=== PATIENT | male | born 1965 | race Two or more races ===

== ENCOUNTER 2020-11-28 11:52 | Outpatient (REF) | payer OTHER, SELFPAY | END 2020-11-28 11:53 | disposition home or self-care (01) | LOC: HO.LAB 11:52 | PROVIDERS: Visit Provider Internal Medicine | DX: Z20.822 Contact with and (suspected) exposure to COVID-19 (principal) | CPT/HCPCS: 36415; C9803; U0003; U0005 ==

== ENCOUNTER 2021-09-13 14:23 | Emergency (ER) | payer OTHER, SELFPAY ==
--- NOTE | ~2021-09-13 | XR_ITS ---
EXAMINATION: XR TIBIA AND FIBULA, RIGHT CLINICAL INFORMATION: Right lateral lower leg laceration from metal COMPARISON: None TECHNIQUE: AP and lateral views of the right tibia and fibula were obtained. FINDINGS: Bone alignment is normal. No fracture or dislocation is seen. The joint spaces are normal. There is a small plantar calcaneal spur. There is evidence of trauma to the soft tissues of the lateral lower leg. No soft tissue foreign body is seen. XR/XR tibia fibula RT 2V IMPRESSION: No fracture or foreign body seen.
[2021-09-13 14:36] VITALS: BP 119/80; PULSE 65; RESP 18; TEMP 37.2; O2SAT 93; BMI 28.5
[2021-09-13] MEDS: Acetaminophen 325 MG TABLET 650 MG PO (16:18)
--- NOTE | 2021-09-13 17:13 | ED_ITS ---
HPI - Wound/Laceration General Chief Complaint: Wound/Laceration Stated Complaint: leg lac Time Seen by Provider: 09/13/21 17:06 Source: patient Mode of arrival: ambulatory History of Present Illness HPI narrative: 56-year-old male with a past medical history of anxiety, ETOH abuse, hypertension, insomnia presenting to the ED complaining of laceration to right lower extremity s/p large metal sheet hitting leg while jared/at work [employer]. Tetanus unknown. Denies injury to other area, numbness, tingling, weakness Onset (ago): hour(s) Related Data Previous Rx's Medication Instructions Recorded hydrocodone 5 mg-acetaminophen 325 1 tab PO Q8H PRN 3 Days #5 tab 09/13/21 mg tablet naproxen 500 mg tablet 500 mg PO BID PRN 10 Days #20 tab 09/13/21 Allergies Allergy/AdvReac Type Severity Reaction Status Date / Time No Known Allergies Allergy Verified 09/13/21 14:36 Review of Systems Review of Systems: Constitutional: No Fever, No Chills ENT/Mouth: No Ear Pain, No Nasal Congestion, No sore throat, No Rhinorrhea Cardiovascular: No Chest Pain, No SOB Respiratory: No Cough Gastrointestinal: No Nausea, No Vomiting, No Diarrhea, No Constipation, No Abdominal pain Genitourinary: No Dysuria, No Hematuria, No Urgency, No Flank Pain Musculoskeletal: No joint pain, No Myalgias, No Joint Swelling Skin: + Skin Lesions, No rash Neuro: No Weakness, No Numbness, No Paresthesias Yes all other systems are reviewed and are negative [facility] Past Medical History Attestation statement: The following information was validated with the patient. Medical History Anxiety H/O ETOH abuse Hypertension Insomnia Surgical History H/O hand surgery Social History Social History Advance Directives: No Advance Directives Information Provided: No Physical Exam Vital Signs: Vital Signs: Last Vital Signs Temp 99.0 F 09/13/21 14:36 Pulse 65 09/13/21 14:36 Resp 18 09/13/21 14:36 BP 119/80 09/13/21 14:36 Pulse Ox 93 09/13/21 14:36 BMI result Body Mass Index 28.5 Const: General: cooperative, healthy appearing and no acute distress Orientation/consciousness: patient oriented x3 Limitations: no limitations HENMT: Head: Yes normal to inspection Ears: hearing grossly normal bilaterally General nose exam: Normal external nose present Face and sinus: Yes normal facial exam Eyes: General: appearance normal, both eyes and all related structures EOM: EOMs intact bilaterally Neck: Neck: Yes normal visual inspection and Yes no meningeal signs Resp: Effort & Inspection: normal respiratory effort and no respiratory distress Cardio: Rate: regular rate Heart sounds: S1 normal heart sound present and S2 normal heart sound present Skin: Other: +9 cm laceration noted to right benitez. Underlying structures intact. Bleeding controlled. NV intact distally Rashes: no rashes Neuro: General: patient oriented x3, tone normal and no meningeal signs Gait exam (Neuro): Normal gait present Extrem: Other: Right knee/ankle/toes nontender with full range of motion intact General: Yes normal to inspection Course Course Course Narrative: -please refer to procedure note. 15 sutures placed and Steri- Strips applied over for reinforcement MDM - Wound/Laceration MDM Narrative Medical decision making narrative: 56-year-old male with a past medical history of anxiety, ETOH abuse, hypertension, insomnia presenting to the ED complaining of laceration to right lower extremity s/p large metal sheet hitting leg while jared/at work [employer]. On exam vital signs stable, NAD/nontoxic, physical exam as above. Will update tetanus and repair wound Differential Diagnosis Differential diagnosis: Likely laceration Medical Records Attestation: I reviewed the patient's medical records. Lab Data Attestation: I reviewed the patient's lab results. Procedures Laceration Laceration 1: Site: lower extremity Side (If applicable): right Size (cm): 9 Description: flap and irregular Depth: simple, single layer Local Anesthetic: lidocaine 1% Amount of anesthesia used (mL): 8 Pre-repair: wound explored, irrigated extensively and deep structures intact Skin layer closed with: nylon Size (cm): 4-0 Number of sutures: 15 Technique: simple, interrupted Discharge Plan Discharge Clinical Impression: Laceration Patient Disposition: Home, Self-Care Instructions: Laceration (ED) Additional Instructions: Your x-ray did not show any foreign body Your wound was repaired with sutures today in the emergency department, place return to any ED or urgent care in 7-10 days to have the stitches taken out Your tetanus was also updated If area begins to look infected, is red, there is drainage, red streaking or you develop fever please return to the ED Avoid getting area wet for the next 24-48 hours, after this you may get wet however do not soak, only pat dry, do not scrub Take Tylenol & Motrin at home for pain, elevate area [place] is an opiate pain medication, take only when pain is severe for the next 3 days. Be aware [place] has Tylenol mixed in, do not exceed 4 g of Tylenol in 1 day Prescriptions: New hydrocodone-acetaminophen 5-325 mg tablet 1 tab PO Q8H PRN (Reason: pain, severe) 3 Days Qty: 5 RF: 0 naproxen 500 mg tablet 500 mg PO BID PRN (Reason: pain) 10 Days Qty: 20 RF: 0 Referrals: Jhony Lagos MD [Emergency Provider] - 10 days (Return to any emergency department or urgent care in 7-10 days for suture removal) Stand Alone Forms: Work/School Release
[2021-09-13] MEDS: Diphth,Pertus(ACell),Tet Adult 0.5 ML SYRINGE IM (18:36)
[2021-09-13] MEDS: Lidocaine HCl 2%/Epi 1:100,000 20 ML VIAL INFILTRATI (18:36)
== END 2021-09-13 18:44 | disposition home or self-care (01) ==
PROVIDERS: Emergency Provider Internal Medicine
DX: S81.811A Laceration without foreign body, right lower leg, initial encounter (principal); I10 Essential (primary) hypertension; W26.8XXA Contact with other sharp object(s), not elsewhere classified, initial encounter; Y93.89 Activity, other specified; Y92.9 Unspecified place or not applicable; Y99.0 Civilian activity done for income or pay
CPT/HCPCS: 12004; 73590; 90471; 90715; 99283; 99284

== ENCOUNTER 2021-09-23 09:42 | Emergency (ER) | payer OTHER, SELFPAY ==
[2021-09-23 09:49] VITALS: BP 136/88; PULSE 49; RESP 19; TEMP 36.6; O2SAT 99; BMI 27.8
--- NOTE | 2021-09-23 11:01 | ED.WOUNDLAC ---
HPI - Wound/Laceration General Chief Complaint: Wound/Laceration Stated Complaint: remove stitches Time Seen by Provider: 09/23/21 10:04 Source: patient Mode of arrival: ambulatory History of Present Illness HPI narrative: 56-year-old male with a past medical history of anxiety, ETOH abuse, hypertension, insomnia presenting to the ED for suture removal from right lower extremity s/p injury on 09/13. Patient reports clear drainage from wound. Denies fever, chills, pain Onset (ago): day(s) () Related Data Previous Rx's Medication Instructions Recorded hydrocodone 5 mg-acetaminophen 325 1 tab PO Q8H PRN 3 Days #5 tab 09/13/21 mg tablet naproxen 500 mg tablet 500 mg PO BID PRN 10 Days #20 tab 09/13/21 cephalexin 500 mg capsule 500 mg PO QID 7 Days #28 cap 09/23/21 Allergies Allergy/AdvReac Type Severity Reaction Status Date / Time No Known Allergies Allergy Verified 09/13/21 14:36 Review of Systems Review of Systems: Constitutional: No Fever, No Chills ENT/Mouth: No Ear Pain, No Hoarseness, No sore throat Cardiovascular: No Chest Pain, No SOB Respiratory: No Cough Gastrointestinal: No Nausea, No Vomiting, No Diarrhea, No Constipation, No Abdominal pain Genitourinary: No Dysuria, No Urgency, No Flank Pain Musculoskeletal: No joint pain, No Myalgias, + Swelling Skin: + Skin Lesions, No rash Neuro: No Weakness, No Numbness, No Paresthesias Yes all other systems are reviewed and are negative [facility] Past Medical History Attestation statement: The following information was validated with the patient. Medical History Anxiety H/O ETOH abuse Hypertension Insomnia Surgical History H/O hand surgery Social History Social History Advance Directives: No Advance Directives Information Provided: Yes Physical Exam Vital Signs: Vital Signs: Last Vital Signs Temp 98 F 09/23/21 09:49 Pulse 49 L 09/23/21 09:49 Resp 19 09/23/21 09:49 BP 136/88 09/23/21 09:49 Pulse Ox 99 09/23/21 09:49 BMI result Body Mass Index 27.8 Const: General: cooperative, healthy appearing and no acute distress Orientation/consciousness: patient oriented x3 Limitations: no limitations HENMT: Head: Yes normal to inspection Ears: hearing grossly normal bilaterally General nose exam: Normal external nose present Face and sinus: Yes normal facial exam Eyes: General: appearance normal, both eyes and all related structures EOM: EOMs intact bilaterally Neck: Neck: Yes normal visual inspection and Yes no meningeal signs Resp: Effort & Inspection: normal respiratory effort and no respiratory distress Cardio: Rate: regular rate Peripheral pulses: radial pulses present Skin: Other: Please refer to image above of healing laceration with sutures intact, appropriate scabbing, + clear drainage present with swelling, shiny skin and mild surrounding erythema. No fluctuance/induration. Distal pulses intact. No evidence of necrosis Rashes: no rashes Neuro: General: patient oriented x3 and no meningeal signs Gait exam (Neuro): Normal gait present Extrem: General: Yes normal to inspection MDM - Wound/Laceration MDM Narrative Medical decision making narrative: 56-year-old male with a past medical history of anxiety, ETOH abuse, hypertension, insomnia presenting to the ED for suture removal from right lower extremity s/p injury on 09/13. On exam vital signs stable, please refer to image above, early cellulitis/infection present, no evidence of abscess/necrosis. Low concern for osteomyelitis. Sutures removed and Steri-Strips applied with dressing for additional reinforcement Medical Records Attestation: I reviewed the patient's medical records. Lab Data Attestation: I reviewed the patient's lab results. Procedures Procedure Narrative Procedure Narrative: Suture removal: 15 sutures removed from right lower extremity Steri-Strips applied Discharge Plan Discharge Clinical Impression: Visit for suture removal, Cellulitis Patient Disposition: Home, Self-Care Instructions: Cellulitis (ED), Stitches Removal (ED) Additional Instructions: Your sutures were removed today in the ED, Steri-Strips were applied, do not pick at these they will fall off on not on Keflex as an antibiotic, please take as prescribed If area becomes more swollen, more red, continues to have drainage please return to the ED Please be re-evaluated in 2-3 days by her primary care doctor, he cannot be seen return to the ED for re-evaluation Prescriptions: New cephalexin 500 mg capsule 500 mg PO QID 7 Days Qty: 28 RF: 0 No Action hydrocodone-acetaminophen 5-325 mg tablet 1 tab PO Q8H PRN (Reason: pain, severe) 3 Days Qty: 5 RF: 0 naproxen 500 mg tablet 500 mg PO BID PRN (Reason: pain) 10 Days Qty: 20 RF: 0 Referrals: Elida Donnelly [employer] SPECIALIST-C [Primary Care Provider] - 2 days (For wound check) Stand Alone Forms: Work/School Release
== END 2021-09-23 11:23 | disposition home or self-care (01) ==
PROVIDERS: Emergency Provider Emergency Medicine; PCP Nurse Practitioner Family
DX: L03.115 Cellulitis of right lower limb (principal); Z48.02 Encounter for removal of sutures; I10 Essential (primary) hypertension
CPT/HCPCS: 99283

== ENCOUNTER 2021-10-19 08:25 | Emergency (ER) | payer OTHER, SELFPAY ==
[2021-10-19 08:43] VITALS: BP 136/69; PULSE 55; RESP 16; TEMP 36.6; O2SAT 97; BMI 27.8
--- NOTE | 2021-10-19 09:40 | ED_ITS ---
HPI - Wound/Laceration General Chief Complaint: Wound/Laceration Stated Complaint: wound check Time Seen by Provider: 10/19/21 09:40 History of Present Illness HPI narrative: Patient complains of a scabbed area on his left lower leg where he had sutures removed September 23 and is concerned as the wound has not he healed yet, denies fever denies pain denies discharge denies swelling Related Data Previous Rx's Medication Instructions Recorded hydrocodone 5 mg-acetaminophen 325 1 tab PO Q8H PRN 3 Days #5 tab 09/13/21 mg tablet naproxen 500 mg tablet 500 mg PO BID PRN 10 Days #20 tab 09/13/21 cephalexin 500 mg capsule 500 mg PO QID 7 Days #28 cap 09/23/21 cephalexin 500 mg tablet 500 mg PO BID 7 Days #14 tab 10/19/21 Allergies Allergy/AdvReac Type Severity Reaction Status Date / Time No Known Allergies Allergy Verified 09/13/21 14:36 Review of Systems Review of Systems: Positive for scabbed red area on left lower leg Negatives no fever no chills no dizziness no weakness no headache no neck pain no chest pain no shortness of breath no leg swelling no numbness weakness or tingling no joint pains no difficulty walking Yes all other systems are reviewed and are negative PMFSH Past Medical History Source: nursing notes reviewed Medical History Anxiety H/O ETOH abuse Hypertension Insomnia Surgical History H/O hand surgery Social History Social History Advance Directives: No Advance Directives Information Provided: No Physical Exam Vital Signs: Vital Signs: Last Vital Signs Temp 98 F 10/19/21 08:43 Pulse 55 10/19/21 08:43 Resp 16 10/19/21 08:43 BP 136/69 10/19/21 08:43 Pulse Ox 97 10/19/21 08:43 BMI result Body Mass Index 27.8 General appearance no distress Head is normocephalic atraumatic Neck is supple Respiratory no distress Extremities full range of motion x4 The left lower leg has a scabbed area with some surrounding mild erythema no significant swelling no discharge no fluctuance no significant tenderness and is walking normally and the ankle and knee have full range of motion and neurovascular intact distal Course Course Course Narrative: Patient who lacerated his leg had sutures removed and wound has never fully closed or healed and is now scabbed with some erythema is treated with antibiotic and referred wound clinic Discharge Plan Discharge Clinical Impression: Leg wound, left Patient Disposition: Home, Self-Care Additional Instructions: As the wound is a little red we are putting you on antibiotic Keflex Follow with wound clinic for further evaluation Return any time for spreading redness, worse pain and swelling, any sign of worsening infection Prescriptions: New cephalexin 500 mg tablet 500 mg PO BID 7 Days Qty: 14 RF: 0 No Action hydrocodone-acetaminophen 5-325 mg tablet 1 tab PO Q8H PRN (Reason: pain, severe) 3 Days Qty: 5 RF: 0 naproxen 500 mg tablet 500 mg PO BID PRN (Reason: pain) 10 Days Qty: 20 RF: 0 cephalexin 500 mg capsule 500 mg PO QID 7 Days Qty: 28 RF: 0 Referrals: Kimberley Evans PA [Physician [employer] Processing Supervisor] - 2 days (Wound on left leg failing to heal) Stand Alone Forms: Work/School Release Interventions: ED Discharge Assessment Last Done: 10/19/21 10:07 Discharge Date/Time: 10/19/21 10:08
--- NOTE | 2021-10-19 10:05 | PC.NURSE ---
PT AMBULATORY INTO [facility], GAIT STEADY. PT AWAKE, ALERT AND ORIENTED X 3. SKIN WARM AND DRY. SCABBED AREA TO RIGHT LOWER LEG. EXAMINED BY TIMOTHY CANO. PLAN IS FOR DC HOME WITH PO ABX. PT AWARE AND AGREEABLE TO PLAN SCAB CLEANSED AND BACITRACIN AND DRESSING APPLIED. PT TOLERATED WITHOU INCIDENT
== END 2021-10-19 10:08 | disposition home or self-care (01) ==
PROVIDERS: Emergency Provider Emergency Medicine
DX: Z48.00 Encounter for change or removal of nonsurgical wound dressing (principal); S81.812D Laceration without foreign body, left lower leg, subsequent encounter; W45.8XXD Other foreign body or object entering through skin, subsequent encounter
CPT/HCPCS: 99282; 99283

== ENCOUNTER 2022-03-12 08:08 | Outpatient (REF) | payer OTHER, SELFPAY ==
--- NOTE | ~2022-03-12 | XR_ITS ---
EXAMINATION: XR FOOT, LEFT CLINICAL INFORMATION: Left foot pain COMPARISON: None TECHNIQUE: AP, lateral, and oblique views of the left foot. FINDINGS: No fracture or dislocation. Alignment is anatomic. Joint spaces are maintained. The soft tissues are unremarkable. XR/XR foot LT 2V IMPRESSION: Unremarkable appearance of the left foot.
[2022-03-12 09:39] LABS: Alanine Aminotransferase 17 U/L (0-40); Albumin Level 4.2 g/dL (3.5-5.0); Alkaline Phosphatase 125 U/L (39-117); Anion Gap 12 (12-20); Aspartate Amino Transferase 21 U/L (5-37); Bilirubin Total 0.8 mg/dL (0.0-1.0); Blood Urea Nitrogen 19 mg/dL (9-16); Calcium 9.3 mg/dL (8.4-10.2); Carbon Dioxide 25 mmol/L (22-29); Chloride 107 mmol/L (96-108); Cholesterol 152 mg/dL; Estimated Glomerular Filt Rate > 60; Glucose Fasting 103 mg/dL (60-99); HDL Cholesterol 48 mg/dL; LDL Cholesterol Calculated 95 mg/dl; Potassium 4.3 mmol/L (3.3-5.1); Sodium 140 mmol/L (135-145); Total Protein 7.2 g/dL (6.5-8.0); Triglycerides 47 mg/dL
[2022-03-14 22:02] LABS: TS Negative Control Passed; TS Panel A 0; TS Panel B 1; TS Positive Control Passed; TSpotTB Negative (Negative)
== END 2022-03-12 08:09 | disposition home or self-care (01) ==
LOC: HO.LAB 08:08
PROVIDERS: PCP Internal Medicine; Visit Provider Internal Medicine
DX: Z00.00 Encounter for general adult medical examination without abnormal findings (principal); Z11.1 Encounter for screening for respiratory tuberculosis; M79.672 Pain in left foot
CPT/HCPCS: 36415; 73620; 80053; 80061; 86481

== ENCOUNTER 2022-03-15 08:59 | Outpatient (REF) | payer OTHER, SELFPAY ==
[2022-03-15 10:56] LABS: HBS Num1 1.97 mIU/mL (0-7.99); HBc Num1 0.09 S/CO (0.00-0.79); HBsAGNum1 0.21 S/CO (0.00-0.99); Hepatitis B Core Antibody Nonreactive (Nonreactive); Hepatitis B Surface Antigen Negative (Negative); ~HepC Num1 0.11 S/CO (0.00-0.79); ~Hepatitis B Surface Antibody NONREACTIVE (Nonreactive); ~Hepatitis C Antibody Nonreactive (Nonreactive)
[2022-03-16 07:53] LABS: Hepatitis A Antibody IgM 0.17 Index (0-0.79); ~Hepatitis A Antibody IgM Nonreactive (Nonreactive)
[2022-03-17 05:12] LABS: Mumps Virus IgG Antibody <9.00 AU/mL; Rubella IgG Antibody <0.90 Index; Rubeola IgG (Measles) <13.50 AU/mL
== END 2022-03-15 09:00 | disposition home or self-care (01) ==
LOC: HO.LAB 08:59
PROVIDERS: PCP Internal Medicine; Visit Provider Internal Medicine
DX: Z01.84 Encounter for antibody response examination (principal)
CPT/HCPCS: 36415; 86704; 86706; 86709; 86735; 86762; 86765; 86787; 86803; 87340

== ENCOUNTER → 2022-04-03 15:03 | Outpatient (REF) | payer OTHER, SELFPAY ==
--- NOTE | 2022-04-03 15:10 | ECG_ITS ---
Test Reason : BRADYCARDIA Blood Pressure : / mmHG Vent. Rate : 051 BPM Atrial Rate : 051 BPM P-R Int : 176 ms QRS Dur : 124 ms QT Int : 468 ms P-R-T Axes : 032 -45 -12 degrees QTc Int : 431 ms Sinus bradycardia Left anterior fascicular block Left ventricular hypertrophy with QRS widening ( R in aVL , Freeburn product ) Abnormal ECG When compared with ECG of 28-FEB-2018 10:00, No significant change was found Referred By: Sydney Randall Electronically Signed By:AIMEE ELLISON
== END ==
LOC: HO.CARD 15:03
PROVIDERS: PCP Internal Medicine; Visit Provider Internal Medicine
DX: R00.1 Bradycardia, unspecified (principal)
CPT/HCPCS: 93005

== ENCOUNTER → 2022-06-01 12:41 | Outpatient (REF) | payer OTHER, SELFPAY ==
--- NOTE | 2022-06-01 12:43 | ECG_ITS ---
Hook-up date: 2022-06-01 11:52:00 Duration: 47:59:00 Test Indications: bradycardia Medications: 345202 QRS complexes 93 Ventricular ectopics which represent <1 % of total QRS comp. 10 Supraventricular ectopics which represent <1 % of total QRS comp. * Paced QRS complexs which represent % of total QRS comp. VENTRICULAR ECTOPY 93 Isolated 0 Bigeminal Cycles 0 Couplets 0 Runs 0 Beats in Runs * Beats LONGEST at * BPM at :: -- * Beats FASTEST at * BPM at :: -- SUPRAVENTRICULAR ECTOPY 7 Isolated 0 Couplets 1 Runs 3 Beats in Runs 3 Beats LONGEST at 83 BPM at 10:42:32 2022-06-03 3 Beats FASTEST at 83 BPM at 10:42:32 2022-06-03 HEART RATES 30 MIN at 04:18:47 2022-06-02 51 AVG 89 MAX at 13:45:16 2022-06-01 LONGEST RR 2.0000 secs at 06:43:05 2022-06-03 S-T LEVELS Channel 1 - 128 mm at 11:52:00 2022-06-01 - 128 mm at 11:52:00 2022-06-01 Channel 2 - 128 mm at 11:52:00 2022-06-01 - 128 mm at 11:52:00 2022-06-01 Channel 3 - 128 mm at 03:11:11 -- - 128 mm at 03:11:11 Underlying rhythm is sinus bradycardia; Average ventricular rate 51/min; range 30-89/min; About 78% of the time, rate <60/min; No significant pauses; Rare, isolated, ventricular ectopy; Very rare supraventricular ectopy; Patient did not report any symptoms in the diary Referred By: Sydney Randall Overread By: AIMEE ELLISON
== END ==
LOC: HO.CARD 12:41
PROVIDERS: PCP Internal Medicine; Visit Provider Internal Medicine
DX: R00.1 Bradycardia, unspecified (principal)
CPT/HCPCS: 93225; 93226

== ENCOUNTER → 2022-06-25 14:41 | Outpatient (BNVA) | payer OTHER, SELFPAY | PROVIDERS: PCP Internal Medicine; Referring Provider Internal Medicine; Visit Provider Internal Medicine | DX: R00.1 Bradycardia, unspecified (principal); I44.4 Left anterior fascicular block | CPT/HCPCS: 99202 ==

== ENCOUNTER → 2022-07-03 15:32 | Outpatient (REF) | payer OTHER, SELFPAY ==
--- NOTE | 2022-07-03 15:35 | CA_ITS ---
Transthoracic Echocardiogram Patient (Last, First, Middle): Brady Edwards, Gender: Male Date of : 1965 Age: 56 Procedure Date: 07/03/2022 Procedure Type: Transthoracic Echocardiogram Location: OP Height: 180.34 cm Weight: 95.26 kg BSA: 2.15 m2 Heart Rate: bpm BP: 120 / 70 mmHg [place]walking Guide: Referring MD: Gurjit Davis MD Symptoms: I44.4 - Left anterior fascicular block Study Quality: Adequate ECG Rhythm: Sinus bradycardia Conclusions: - The left ventricular systolic function is normal. The calculated ejection fraction is 59% by biplane method. - There is mildly increased left ventricular wall thickness. - No obvious valvular pathology seen on this study. Findings Left Ventricle Normal left ventricular cavity size. There is mildly increased left ventricular wall thickness. The left ventricular systolic function is normal. The calculated ejection fraction is 59% by biplane method. There is no evidence of regional wall motion abnormalities. Diastolic function is normal for age. Right Ventricle Normal right ventricular cavity size and systolic function. Atria The left atrium is mildly dilated. The right atrium is normal in size. Aortic Valve There is a normal trileaflet aortic valve. There is no aortic valve stenosis. There is no aortic valve regurgitation. Mitral Valve The mitral valve appears normal. There is trace mitral valve regurgitation. There is no mitral valve stenosis. Pulmonic Valve The pulmonic valve is likely normal. Tricuspid Valve Normal tricuspid valve structure. There is trace tricuspid valve regurgitation. There is no evidence of pulmonary hypertension. Great Vessels The asc aorta is normal in size. Venous The inferior vena cava is normal in size and collapses greater than 50% with inspiration. Pericardium/Pleural There is no evidence of pericardial effusion. Prior Study Comparison No prior study available for comparison. Recommendations, Care & Conclusions No obvious valvular pathology seen on this study. Measurements 2D Linear Measurements IVSd: 1.29 0.6-0.9/0.6-1.0 cm LVIDd: 5.24 3.9-5.3/4.2-5.9 cm LVIDd Index: 2.44 2.4-3.2/2.2-3.1 cm/m2 LVIDs: 3.22 2.0-3.6 cm LVPWd: 1.28 0.7-1.1 cm Ao Root: 3.40 2.1-3.5 cm LA Diam: 4.00 2.7-3.8/3.0-4.0 cm LAIDs Index: 1.86 1.5-2.3 cm/m2 LV Mass: 345.80 67-162/88-224 g LV Mass Index: 160.84 43-95/49-115 g/m2 LVOT Diam: 2.20 3.0+(-)1.3 cm 2D Systolic Function EF 4C: 58.40 >55% EF 2C: 61.00 >55% EF BiP: 59.20 >55% Mitral Valve MV Pk E: 0.46 MV PK A: 0.68 MV Decel Time: 253.00 E/A: 0.70 E'Lateral: 9.46 E'Medial: 8.38 E/E' Med: 5.50 E/E' Lat: 4.80 PHT: 74.00 MVA PHT: 2.97 Decel Sac: 1.81 Aortic Valve AoV Pk Bakari: 1.77 AoV Mn Bakari: 1.18 AoV VTI: 0.40 AoV Pk Grad: 13.00 Aov Mn Grad: 7.00 FACUNDO Cont.VTI: 2.41 LVOT LVOT Pk Bakari: 1.07 LVOT Mn Bakari: 0.73 LVOT VTI: 0.25 LVOT Pk Grad: 5.00 LVOT Mn Grad: 2.00 LVOT Diam: 2.20 LVOT Area: 3.80 Diastolic Function MV Pk E: 0.46 MV Pk A: 0.68 E/A: 0.70 E'Medial: 8.38 E/E' Med: 5.50 E' Laterial: 9.46 E/E' Lat: 4.80 Right Ventricle TAPSE (mm): 31.00 TVS' Bakari: 17.00 Tricuspid Valve TR Pk Bakari: 2.18 TR Pk Grad: 19.00 RA Press: 3.00 RVSP: 22.00 Great Vessels Aorta Ao Root-2D: 3.40 2.0-3.7 cm Ao Asc: 3.70 2.1-3.4 cm Pulmonary Valve PV Pk Bakari: 1.17 Peak PV Grad: 5.00 Updated in Other Vendor System with Status of Final Gurjit Davis MD electronically signed on 07/04/2022 12:33:11 PM with status of Final
== END ==
LOC: HO.CARD 15:32
PROVIDERS: Visit Provider Internal Medicine
DX: I44.4 Left anterior fascicular block (principal)
CPT/HCPCS: 93306

== ENCOUNTER → 2022-07-10 07:31 | Outpatient (REF) | payer OTHER, SELFPAY ==
--- NOTE | 2022-07-10 07:35 | CA_ITS ---
Acquisition Time: 2022-07-10 08:12:39 Total Exercise Time: 00:03:29 Test Indications: Abnormal ECG Medications: NONE Protocol: CATRACHO Max HR: 075 BPM 46% of Pred: 163 BPM Max BP: 162/088 mmHG Max Work Load: 5.1 METS Exercise stress test with exercise 3 min 29 sec of Catracho protocol, with request to stop due to right foot pain, no anginal symptoms, without arrythmia, with heart rate 42 ( 26% MPHR at baseline) and daysi to 74 ( 45% MPHR) at peak exercise, unable to fully determine if normal chronotropic response to exercise, with normotensive response, with nondiagnostic EKG for ischemia. In recovery heart rate returned to 40. Test reviewed with Dr Flower. Referred By: Gurjit Davis Overread By: NITIN COX
== END ==
LOC: HO.CARD 07:31
PROVIDERS: Visit Provider Internal Medicine
DX: I44.4 Left anterior fascicular block (principal); R00.1 Bradycardia, unspecified
CPT/HCPCS: 93017

== ENCOUNTER 2023-05-30 15:11 | Outpatient (AMB) | payer OTHER, SELFPAY ==
--- NOTE | 2023-05-30 15:12 | MHC.PC.OV ---
Vital Signs 05/30/23 15:17 Height 5 ft 11 in Weight 207 lb BMI 28.9 BP 122/80 Blood Pressure Location Lt brachial Position Sitting Intake Visit Reasons: PE Intake Note: Patient here for a physical exam Scrub Nurse Required: No Accompanied by: Self / Same As Patient Allergies No Known Allergies Allergy (Verified 05/30/23 15:40) Medication List - Last Reconciled 05/30/23 by Sydney Randall MD bisacodyl (Dulcolax (bisacodyl)) 10 mg (2 x 5 mg) PO ONCE 1 day polyethylene glycol 3350 (Miralax) 238 grams PO ONCE 1 day Tobacco use date assessed: 05/30/23 Dental Screening Dental Screen Date: 05/30/23 Did you have a dental visit in the last 12 months?: No Did you have a dental problem in the last 6 months where you did not have access to dental care?: No Was dental information given to patient?: Patient has dentist HPI HPI Comments History of Present Illness Details This is a 57-year-old male that comes for his physical exam. He miss his colonoscopy and I will order Cologuard. No family history of colon cancer. No chest pain or shortness of breath. Doing well. [facility] Medical History Anxiety H/O ETOH abuse Hypertension Immunization due Insomnia Left foot pain Physical exam Surgical History H/O hand surgery Family History Mother Diabetes Hypertension Father No problems noted. Son Stroke Social History Housing: Apartment Alcohol intake: former Patient Tobacco Use Status: Former Tobacco user Tobacco use type: Cigarette e-Cigarette/Vaping Use: Never Used Second Hand Smoke Exposure: No service: No Current occupational status: employed Current occupational exposures/hazards: No Cognitive needs: No Hearing needs: No Vision needs: No Questionnaire PHQ-9 Over the last 2 weeks, how often have you been bothered by any of the following problems? 1. Little interest or pleasure in doing things: not at all 2. Feeling down, depressed, or hopeless: not at all 3. Trouble falling or staying asleep, or sleeping too much: not at all 4. Feeling tired or having little energy: not at all 5. Poor appetite or overeating: not at all 6. Feeling bad about yourself - or that you are a failure or have let yourself or your family down: not at all 7. Trouble concentrating on things, such as reading the newspaper or watching television: not at all 8. Moving or speaking so slowly that other people could have noticed. Or the opposite - being so fidgety or restless that you have been moving around a lot more than usual: not at all 9. Thoughts that you would be better off or of hurting yourself in some way: not at all Total score: 0 Depression Screening Interpretation: Negative 44363 - PHQ-9 Billing: Yes Source: Developed by Drs. Cristofer Wetzel, Alicja Irby, Viet Lee and colleagues, with an educational reed from [employer]. Thrive Questionnaire Date Thrive assessed: 05/30/23 I am a: Patient What is your living situation today?: I have a steady place to live Within the past 12 months, did the food you bought not last and you didn't have the money to get more?: Never true Within the past 12 months, did you worry whether your food would run out before you got money to buy more?: Never true Do you have trouble paying for medicines?: No Do you have trouble getting transportation to medical appointments?: No Do you have trouble paying your heating and electricity bill?: No Do you have trouble taking care of your child, family member or friend?: No Do you have trouble with day-to-day activities such as bathing, preparing meals, shopping, managing finances, etc.?: No Are you currently unemployed and looking for a job?: No Are you interested in more education?: No Please select the resources that you would like help with: None Currently or been in a relationship where the following occur: no concerns reported AUDIT C Alcohol Use Questionnaire (AUDIT-C) 1. How often do you have a drink containing alcohol?: Never Total Score: 0 Score Reviewed/Action Taken: No IRMA-7 AMB Questionnaire IRMA-7 Date IRMA - 7 assessed: 05/30/23 Feeling nervous, anxious, or on edge: 0 = Not at all Not being able to stop or control worryin = Not at all Worrying too much about different things: 0 = Not at all Trouble relaxin = Not at all Being so restless that it is hard to sit still: 0 = Not at all Becoming easily annoyed or irritable: 0 = Not at all Feeling afraid as if something awful might happen: 0 = Not at all Total IRMA-7 score (0-4 normal; 5-9 mild; 10-14 moderate; 15-21 severe): 0 Source: Developed by Drs. Cristofer Wetzel, Alicja Irby, Viet Lee and colleagues, with an educational reed from [employer]. IRMA-7 Assessment Billing IRMA-7 Assessment Tool: IRMA-7 Assessment 27434 Review of Systems Const All systems reviewed & are unremarkable except as noted in HPI and below Eyes Reports no additional complaints, Denies change in vision and Denies other visual disturbances Card Denies chest pain at rest, Denies chest pain with activity, Denies edema, Denies irregular heart rhythm, Denies claudication, Denies dyspnea, Denies dyspnea on exertion, Denies orthopnea, Denies paroxysmal nocturnal dyspnea and Denies slow heart rate Resp Denies cough, Denies dyspnea and Denies dyspnea on exertion GI Denies abdominal pain, Denies change in bowel habits, Denies excessive flatus, Denies nausea and Denies vomiting Denies urinary hesitancy, Denies urinary incontinence and Denies urinary urgency Musc Denies abnormal gait, Denies atrophy, Denies deformity and Denies limited range of motion Skin/Breast Denies bleeding lesions, Denies changing lesions and Denies rash Neuro Denies abnormal gait and Denies lack of coordination Physical exam (Primary Care) Vital Signs: Last Vital Signs BP 122/80 05/30/23 15:17 BMI result Body Mass Index 28.9 Tobacco/Smoking Status: Tobacco use Status Tobacco use date assessed 05/30/23 05/30/23 15:19 Patient Tobacco Use Status Former Tobacco user 05/30/23 15:16 Tobacco use type Cigarette 05/30/23 15:16 e-Cigarette/Vaping Use Never Used 05/30/23 15:16 PHQ-9: PHQ-9 Score PHQ-9: Total score 0 05/30/23 15:33 Depression Screening Interpretation: Negative Thrive Assessment: Date of Thrive Assessment Date Thrive assessed 05/30/23 05/30/23 15:16 Currently or been in a relationship where the following occur: no concerns reported Const Orientation/consciousness: patient oriented x3 HENMT Head: Yes normal to inspection, Yes normocephalic and Yes atraumatic Ears: external ears normal Eyes General: appearance normal, both eyes and all related structures Eyelids: Yes eyelids normal Conjunctivae: conjunctivae normal Neck Neck: Yes normal visual inspection and Yes supple Resp Effort & Inspection: normal respiratory effort Auscultation: clear to auscultation bilaterally Cardio Jugular venous distension: no JVD Rate: regular rate Rhythm: regular rhythm Heart sounds: S1 normal heart sound present and S2 normal heart sound present GI Inspection: Yes normal to inspection Palpation (GI): Soft to palpation and nontender Auscultation: normal bowel sounds Skin General skin exam: no rashes or lesions noted Neuro General: patient oriented x3 and no focal motor deficits Extrem General: Yes full ROM Psych Appearance: grossly normal Assessment and Plan Assessment & Plan (1) Physical exam: Code(s): Z00.00 - Encounter for general adult medical examination without abnormal findings Plan: Repeat in a year Orders: Orders Comprehensive [place]. Panel Fast Today Z00.00 - Encounter for general adult medical examination without abnormal findings Lipid Panel Today Z00.00 - Encounter for general adult medical examination without abnormal findings Referrals Cologuard Test Z12.11 - Encounter for screening for malignant neoplasm of colon, Z12.12 - Encounter for screening for malignant neoplasm of rectum Coding Level of Care Code Est Pt Prev Care 40-64y(89122) Diagnoses Physical exam Z00.00 Additional Codes IRMA-7 Assessment Billing - IRMA-7 Assessment Tool: IRMA-7 Assessment 83386 ([id number]) Time Spent (min) 31
[2023-05-30 15:17] VITALS: BP 122/80; BMI 28.9
== END 2023-05-30 15:38 | disposition home or self-care (01) ==
PROVIDERS: PCP Internal Medicine; Visit Provider Internal Medicine
DX: Z00.00 Encounter for general adult medical examination without abnormal findings (principal)
CPT/HCPCS: 99396

== ENCOUNTER 2024-06-03 07:15 | Outpatient (AMB) | payer OTHER, SELFPAY ==
--- NOTE | 2024-06-03 07:32 | MHC.PC.OV ---
Vital Signs 06/03/24 07:33 Height 5 ft 11 in Weight 206 lb BMI 28.7 BP 126/80 Blood Pressure Location Lt brachial Position Sitting Intake Visit Reasons: Annual Exam Intake Note: Patient here for an annual physical exam [employer] Required: No Accompanied by: Self / Same As Patient Allergies No Known Allergies Allergy (Verified 06/03/24 07:40) Medication List - Last Reconciled 06/03/24 by Sydney Randall MD No Known Home Meds Tobacco use date assessed: 06/03/24 Dental Screening Dental Screen Date: 06/03/24 Did you have a dental visit in the last 12 months?: No Did you have a dental problem in the last 6 months where you did not have access to dental care?: No Was dental information given to patient?: Patient has dentist HPI HPI Comments History of Present Illness Details This is a 58-year-old male that comes for his physical exam. Was not able to do Cologuard but is willing to do colonoscopy and will be refer through open access. No chest pain or shortness on breath. Complains of pain in feet that happens in the morning after having a long day at work. Will start him on NSAIDs as needed for this matter. [facility] Medical History (Updated 06/03/24 @ 07:54 by Sydney Randall MD) Immunization due Left foot pain Physical exam Anxiety Insomnia Hypertension H/O ETOH abuse Surgical History H/O hand surgery Family History Mother Diabetes Hypertension Father No problems noted. Son Stroke Social History Housing: Apartment Alcohol intake: former Patient Tobacco Use Status: Former Tobacco user Tobacco use type: Cigarette e-Cigarette/Vaping Use: Never Used Second Hand Smoke Exposure: No service: No Current occupational status: employed Current occupational exposures/hazards: No Cognitive needs: No Hearing needs: No Vision needs: No Questionnaire PHQ-9 Over the last 2 weeks, how often have you been bothered by any of the following problems? 1. Little interest or pleasure in doing things: not at all 2. Feeling down, depressed, or hopeless: not at all 3. Trouble falling or staying asleep, or sleeping too much: not at all 4. Feeling tired or having little energy: not at all 5. Poor appetite or overeating: not at all 6. Feeling bad about yourself - or that you are a failure or have let yourself or your family down: not at all 7. Trouble concentrating on things, such as reading the newspaper or watching television: not at all 8. Moving or speaking so slowly that other people could have noticed. Or the opposite - being so fidgety or restless that you have been moving around a lot more than usual: not at all 9. Thoughts that you would be better off or of hurting yourself in some way: not at all Total score: 0 Depression Screening Interpretation: Negative Depression Screening Done: Yes 02008 - PHQ-9 Billing: Yes Source: Developed by Drs. Cristofer Wetzel, Alicja Irby, Viet Lee and colleagues, with an educational reed from [employer]. Thrive Questionnaire Date Thrive assessed: 06/03/24 I am a: Patient What is your living situation today?: I have a steady place to live Within the past 12 months, did the food you bought not last and you didn't have the money to get more?: Never true Within the past 12 months, did you worry whether your food would run out before you got money to buy more?: Sometimes True Do you have trouble paying for medicines?: No Do you have trouble getting transportation to medical appointments?: No Do you have trouble paying your heating and electricity bill?: No Do you have trouble taking care of your child, family member or friend?: No Do you have trouble with day-to-day activities such as bathing, preparing meals, shopping, managing finances, etc.?: No Are you currently unemployed and looking for a job?: No Are you interested in more education?: No Please select the resources that you would like help with: None Currently or been in a relationship where the following occur: No concerns reported THRIVE Score: 1 AUDIT C Alcohol Use Questionnaire (AUDIT-C) 1. How often do you have a drink containing alcohol?: Never Total Score: 0 Score Reviewed/Action Taken: No IRMA-7 AMB Questionnaire IRMA-7 Date IRMA - 7 assessed: 06/03/24 Feeling nervous, anxious, or on edge: 0 = Not at all Not being able to stop or control worryin = Not at all Worrying too much about different things: 0 = Not at all Trouble relaxin = Not at all Being so restless that it is hard to sit still: 0 = Not at all Becoming easily annoyed or irritable: 0 = Not at all Feeling afraid as if something awful might happen: 0 = Not at all Total IRMA-7 score (0-4 normal; 5-9 mild; 10-14 moderate; 15-21 severe): 0 Source: Developed by Drs. Cristofer Wetzel, Alicja Irby, Viet Lee and colleagues, with an educational reed from [employer]. IRMA-7 Assessment Billing IRMA-7 Assessment Tool: IRMA-7 Assessment 78612 Review of Systems Const All systems reviewed & are unremarkable except as noted in HPI and below Card Denies chest pain at rest, Denies chest pain with activity, Denies edema, Denies irregular heart rhythm, Denies claudication, Denies dyspnea, Denies dyspnea on exertion, Denies orthopnea, Denies paroxysmal nocturnal dyspnea and Denies slow heart rate Resp Denies cough, Denies dyspnea and Denies dyspnea on exertion GI Denies abdominal pain, Denies change in bowel habits, Denies excessive flatus, Denies nausea and Denies vomiting Denies urinary hesitancy, Denies urinary incontinence and Denies urinary urgency Musc Reports arthralgias Physical exam (Primary Care) Vital Signs: Last Vital Signs BP 126/80 06/03/24 07:33 BMI result Body Mass Index 28.7 Tobacco/Smoking Status: Tobacco use Status Tobacco use date assessed 06/03/24 06/03/24 07:37 Patient Tobacco Use Status Former Tobacco user 06/03/24 07:37 Tobacco use type Cigarette 06/03/24 07:37 e-Cigarette/Vaping Use Never Used 06/03/24 07:37 PHQ-9: PHQ-9 Score PHQ-9: Total score 0 06/03/24 07:43 Depression Screening Interpretation: Negative Thrive Assessment: Date of Thrive Assessment Date Thrive assessed 06/03/24 06/03/24 07:37 Currently or been in a relationship where the following occur: No concerns reported HENMT Head: Yes normal to inspection, Yes normocephalic and Yes atraumatic Ears: external ears normal Eyes General: appearance normal, both eyes and all related structures Eyelids: Yes eyelids normal Conjunctivae: conjunctivae normal Neck Neck: Yes normal visual inspection and Yes supple Resp Effort & Inspection: normal respiratory effort Auscultation: clear to auscultation bilaterally Cardio Jugular venous distension: no JVD Rate: regular rate Rhythm: regular rhythm Heart sounds: S1 normal heart sound present and S2 normal heart sound present GI Inspection: Yes normal to inspection Palpation (GI): Soft to palpation and nontender Auscultation: normal bowel sounds Skin General skin exam: no rashes or lesions noted Neuro General: no focal motor deficits Extrem General: Yes full ROM Psych Appearance: grossly normal Assessment and Plan Assessment & Plan (1) Physical exam: Code(s): Z00.00 - Encounter for general adult medical examination without abnormal findings Plan: Repeat in a year. (2) Pain in both feet: Code(s): M79.671 - Pain in right foot; M79.672 - Pain in left foot Plan: Start NSAIDs as needed. Orders: Orders Comprehensive [place]. Panel Fast Today Z00.00 - Encounter for general adult medical examination without abnormal findings Lipid Panel Today Z00.00 - Encounter for general adult medical examination without abnormal findings Referrals Open Access Screening Colonoscopy Referral Z12.11 - Encounter for screening for malignant neoplasm of colon Medications: New nabumetone 750 mg PO DAILY 90 days 90 tabs 1RF M79.671 - Pain in right foot, M79.672 - Pain in left foot Coding Level of Care Code Est Pt Level 3 (70346) Est Pt Prev Care 40-64y(62250) Diagnoses Physical exam Z00.00 Pain in both feet M79.671; M79.672 Additional Codes IRMA-7 Assessment Billing - IRMA-7 Assessment Tool: IRMA-7 Assessment 10039 ([id number]) Time Spent (min) 33
[2024-06-03 07:33] VITALS: BP 126/80; BMI 28.7
== END 2024-06-03 07:57 | disposition home or self-care (01) ==
PROVIDERS: PCP Internal Medicine; Visit Provider Internal Medicine
DX: Z00.00 Encounter for general adult medical examination without abnormal findings (principal); M79.671 Pain in right foot; M79.672 Pain in left foot
CPT/HCPCS: 99213; 99396

== ENCOUNTER 2024-09-22 12:14 | Emergency (ER) | payer OTHER, SELFPAY ==
[2024-09-22] VITALS (7 sets, daily range): BP systolic 141–165; BP diastolic 80–100; PULSE 54–60; RESP 15–20; TEMP 2.4–36.8; O2SAT 89–97; BMI 27.9
--- NOTE | ~2024-09-22 | CT_ITS ---
EXAMINATION: CT CHEST WITH CONTRAST CLINICAL INFORMATION: Status post fall. COMPARISON: None available. TECHNIQUE: Multidetector volumetric CT imaging of the chest was obtained after the administration of 85 mL of Omnipaque 350 intravenous contrast without immediate adverse reactions. Axial MIP volume rendering provided. Sagittal and coronal reformatted images were obtained. This CT examination was performed using dose optimization techniques as appropriate, variously including the following: *Automated exposure control *Adjustment of mA and/or kV according to patient size (this includes techniques or standardized protocols for targeted exams where dose is matched to indication/reason for exam; i.e. extremities or head) *Use of iterative reconstruction technique DLP: 502 mGy-cm FINDINGS: Acute cortical disruption with mild malalignment involving the posterior lateral aspect of the left ninth ribs and tenth with tiny subcutaneous emphysema. No pneumothorax. No hemothorax. No hemomediastinum. No pneumomediastinum. Thoracic aorta is intact without IV contrast extravasation. There is a bilateral pulmonary mosaic pattern. There is a 1 cm noncalcified pulmonary nodule, left upper lobe. No bronchiectasis. No honeycombing. Main pulmonary artery and its main branches are patent. Respiratory airways patent. Multilevel spondylosis throughout the axial skeleton. No acute fracture or listhesis in the included axial skeleton. Sternum is intact. The included scapula and clavicles are intact. Exophytic cystic lesion in the upper pole right kidney. Hiatal hernia. CT/CT chest w IV con IMPRESSION: Acute minimally displaced rib fractures, posterior lateral aspect left ninth and 10th ribs. Subcutaneous emphysema without gross pneumothorax. Mild interstitial lung edema versus small airway disease versus small pulmonary artery disease. 1 cm noncalcified pulmonary nodule, left upper lobe. Hiatal hernia. Exophytic cystic lesion, right kidney. Multilevel spondylosis. Fleischner guidelines were followed. Electronically signed by: Anibal Redding MD 09/22/2024 02:57 PM [facility]
--- NOTE | ~2024-09-22 | CT_ITS ---
EXAMINATION: CT ABDOMEN AND PELVIS WITH CONTRAST CLINICAL INFORMATION: Status post fall. Left flank pain. COMPARISON: None available. TECHNIQUE: Multidetector volumetric images were obtained from the superior aspect of the liver through the pubic symphysis following administration 85 mL of Omnipaque 350 intravenous contrast. Sagittal and coronal reformatted images were obtained on the technologist's workstation. Oral contrast: No This CT examination was performed using dose optimization techniques as appropriate, variously including the following: *Automated exposure control *Adjustment of mA and/or kV according to patient size (this includes techniques or standardized protocols for targeted exams where dose is matched to indication/reason for exam; i.e. extremities or head) *Use of iterative reconstruction technique DLP: 1017 mGy-cm FINDINGS: LUNG BASES: The visualized lung bases are unremarkable. LIVER, GALLBLADDER, AND BILIARY TREE: The liver is normal in size, shape, and attenuation. No focal hepatic lesion or biliary ductal dilatation is present. The gallbladder is unremarkable with no evidence of radiopaque gallstones, gallbladder wall thickening, or obvious pericholecystic inflammatory changes. PANCREAS: Unremarkable. SPLEEN: Unremarkable. ADRENAL GLANDS: Unremarkable. KIDNEYS AND URETERS: The kidneys are normal in size, shape, and attenuation. No hydronephrosis, hydroureter, or calculi seen. No perinephric stranding. BLADDER: Unremarkable. GASTROINTESTINAL TRACT: The small and large bowel are unremarkable. The appendix is unremarkable. ABDOMINAL WALL: No significant hernia is appreciated. LYMPH NODES: Normal. VASCULAR: Unremarkable. PELVIC VISCERA: Unremarkable. OSSEOUS STRUCTURES: Acute cortical disruption with the malalignment involving the posterior and posterior lateral aspect of the left ninth and tenth ribs with associated subcutaneous emphysema. No acute fracture in the axial skeleton. The bony pelvis is intact. Sclerosis and the sacroiliac joints with vacuum phenomenon. The coxofemoral joints are intact with normal alignment. No acute cortical disruption in the sacrococcyx. Grade 1 anterolisthesis at L4-5 on a degenerative basis. Liver is intact. Spleen is intact. Pancreas is intact. Kidneys are intact. No hemoperitoneum. No hematoma, retroperitoneum. No mesenteric hematoma. The abdominal aorta is intact without IV contrast extravasation. No aneurysm or dissection, abdominal aorta. No pericholecystic fluid collection or gallbladder wall thickening. No peripancreatic fluid collections or edema pattern. No nodular lesions in the adrenal glands. Multifocal hypodensities throughout the renal parenchyma. No hydronephrosis. Abundant stool, left hemicolon. Numerous diverticula in the left hemicolon. Wall thickening versus collapsed nondistended left hemicolon. Hiatal hernia. Prostate gland is not enlarged. Small fat-containing umbilical hernia. Appendix is normal. Mixed plaques throughout the abdominal aorta wall and iliac arteries. CT/CT abdomen pelvis w IV con IMPRESSION: No intra-abdominal organs or vascular structure injury. Acute minimally displaced rib fractures, left ninth and 10th ribs. Sigmoid colon diverticulosis/diverticular disease. Atherosclerosis. Grade 1 anterolisthesis L4-5. Bilateral renal cysts. Fleischner guidelines were followed. Electronically signed by: Anibal Redding MD 09/22/2024 03:06 PM [facility]
--- NOTE | ~2024-09-22 | CT_ITS ---
EXAMINATION: CT HEAD WITHOUT CONTRAST CLINICAL INFORMATION: trauma COMPARISON: CT dated February 28, 2018. TECHNIQUE: Contiguous axial imaging was performed from the skull base to vertex without intravenous administration of contrast. This CT examination was performed using dose optimization techniques as appropriate, variously including the following: *Automated exposure control *Adjustment of mA and/or kV according to patient size (this includes techniques or standardized protocols for targeted exams where dose is matched to indication/reason for exam; i.e. extremities or head) *Use of iterative reconstruction technique DLP: 669 mGy-cm FINDINGS: The bony calvarium is intact. The skull base is intact. No acute intracranial hemorrhage, mass effect, midline shift, hydrocephalus or herniation. Rbaga-white matter differentiation is normal. Posterior cranial fossa contents demonstrated no acute intracranial hemorrhage or mass effect. Sellar/suprasellar region to straighten no gross masses or hemorrhage. Calcified plaques in the cavernous supraclinoid segments both ICA. No hematoma, intraconal or extraconal compartments of the orbits. No air-fluid levels in the paranasal sinuses. Tympanic cavities and mastoid air cells are aerated. CT/CT head/brain wo IV con IMPRESSION: No acute fracture, bony calvarium. No acute intracranial hemorrhage. Atherosclerosis disease, both ICA. Electronically signed by: Anibal Redding MD 09/22/2024 02:40 PM [facility] [place]
--- NOTE | ~2024-09-22 | CT_ITS ---
EXAMINATION: CT CERVICAL SPINE WITHOUT CONTRAST CLINICAL INFORMATION: Injury. COMPARISON: None available. TECHNIQUE: Contiguous axial images through the cervical spine using 3 mm collimation with bone and soft tissue algorithm. Sagittal and coronal reformatted images acquired. This CT examination was performed using dose optimization techniques as appropriate, variously including the following: *Automated exposure control *Adjustment of mA and/or kV according to patient size (this includes techniques or standardized protocols for targeted exams where dose is matched to indication/reason for exam; i.e. extremities or head) *Use of iterative reconstruction technique DLP: 517 mGy-cm FINDINGS: Craniocervical junction is intact. Marginal osteophyte formation, subchondral cyst formation, decreased intervertebral disc height and vacuum phenomenon with endplate sclerosis at C5-C6 and C6-7. Facet joint hypertrophy, C3 and C6-7. C1 is intact. C2 is intact. C3 is intact. C4 is intact. C5 is intact. C6 is intact. C7 is intact. No prevertebral compartment hematoma. Punctate calcifications in the palatine tonsils. Calcified plaques in the main branches of the aortic arch. Patchy and confluent pulmonary groundglass with a subtle mosaic pattern, upper lobes. CT/CT cervical spine wo IV con IMPRESSION: Multilevel cervical spondylosis C5-C6 and C6-7 without acute fracture or trauma-related listhesis. Pulmonary edema versus lung contusion among other etiologies. Please refer to the CT chest. Fleischner guidelines were followed. Electronically signed by: Anibal Redding MD 09/22/2024 02:47 PM [facility] [place]
--- NOTE | 2024-09-22 12:19 | ED_ITS ---
HPI - General Adult General Chief complaint: Back Pain/Injury Stated complaint: Back injury Time Seen by Provider: 09/22/24 12:50 Related Data Previous Rx's ?Medication ?Instructions ?Recorded nabumetone 750 mg tablet 750 mg PO DAILY 90 days #90 tabs 06/03/24 oxycodone 5 mg tablet 5 mg PO Q8H PRN pain #7 tabs 09/22/24 Allergies Allergy/AdvReac Type Severity Reaction Status Date / Time No Known Allergies Allergy Verified 09/22/24 12:20 [facility] Past Medical History Medical History Immunization due Left foot pain Physical exam Anxiety Insomnia Hypertension H/O ETOH abuse Surgical History H/O hand surgery Family History Family History Mother Diabetes Hypertension Father No problems noted. Son Stroke Social History Social History Housing: Apartment Alcohol intake: former Patient Tobacco Use Status: Former Tobacco user Tobacco use type: Cigarette e-Cigarette/Vaping Use: Never Used Second Hand Smoke Exposure: No Advance Directives: No Advance Directives Information Provided: Yes Do you have a plan to hurt others: No Plan service: No Current occupational status: employed Current occupational exposures/hazards: No Cognitive needs: No Hearing needs: No Vision needs: No Physical Exam ED Vital Signs: Vital Signs - 24 hr 09/22/24 12:16 09/22/24 12:28 09/22/24 13:42 Temperature 36.3 F L Pulse Rate 57 55 Respiratory Rate 16 16 20 Blood Pressure 165/100 H 157/95 H Pulse Oximetry 97 97 Oxygen Delivery Method Room Air Room Air Oxygen Flow Rate 09/22/24 13:42 09/22/24 14:12 09/22/24 14:13 Temperature Pulse Rate 59 54 Respiratory Rate 18 16 Blood Pressure 141/93 H 149/80 H Pulse Oximetry 95 89 L 97 Oxygen Delivery Method Room Air Room Air Nasal Cannula Oxygen Flow Rate 2 BMI result Body Mass Index 27.9 Course Course Course Narrative: RME, this is a rapid medical exam performed by Joe Overton please refer to primary provider for complete H&P- 59-year-old male presents for evaluation of left flank pain. He reports falling from approximately 5 ft. He landed on the forks of a forklift and then fell onto the ground. He has a large hematoma to the left flank. Plan for trauma scans, labs, urinalysis Medications Administered Discontinued Medications Generic Name Dose Route Start Last Admin Trade Name Freq PRN Reason Stop Dose Admin Hydromorphone HCl 0.5 mg 09/22/24 12:50 09/22/24 13:03 Hydromorphone Hcl 0.5 Mg/0.5 Ml Syringe IVPUSH 09/22/24 12:51 0.5 mg ONCE ONE Administration Protocol Hydromorphone HCl 0.5 mg 09/22/24 13:12 09/22/24 13:42 Hydromorphone Hcl 0.5 Mg/0.5 Ml Syringe IVPUSH 09/22/24 13:13 0.5 mg ONCE ONE Administration Protocol Hydromorphone HCl 0.5 mg 09/22/24 13:16 09/22/24 14:14 Hydromorphone Hcl 0.5 Mg/0.5 Ml Syringe IVPUSH 09/22/24 13:17 0.5 mg ONCE ONE Administration Protocol Medical Decision Making Lab Data 09/22/24 12:35 09/22/24 12:35 Labs: Lab Results 09/22/24 Range/Units 12:35 WBC 8.0 (4.8-10.8) X10*3/uL RBC 4.75 (4.60-5.80) X10*6/uL Hgb 14.8 (14.0-18.0) g/dl Hct 43.3 (42.0-52.0) % MCV 91.2 (80.0-98.0) fL MCH 31.2 (27.0-33.0) pg MCHC 34.2 (31.0-36.0) g/dl RDW 12.8 (11.0-16.0) % Plt Count 289 (160-400) X10*3/uL MPV 9.9 (9.4-12.4) fL Immature Gran % (Auto) 0.7 H (0.0-0.4) % Neut % (Auto) 65.6 (45-73) % Lymph % (Auto) 26.0 (20-40) % [place] % (Auto) 6.6 (2-11) % Eos % (Auto) 0.7 (0-4) % Baso % (Auto) 0.4 (0-2) % Lymph # (Auto) 2.1 (1.2-4.9) X10*3/uL [place] # (Auto) 0.5 (0.1-1.2) X10*3/uL Eos # (Auto) 0.1 (0.0-0.4) X10*3/uL Baso # (Auto) 0.0 (0.0-0.2) X10*3/uL Abs Immat Gran (auto) 0.06 H (0.00-0.03) X10*3/uL Absolute Neuts (auto) 5.3 (2.0-8.3) x10*3/uL Absolute Nucleated RBC 0.000 (0.0-0.012) X10*3/uL Nucleated RBC % (auto) 0.0 (0.0-0.2) /100WBC PT 10.8 L (10.9-12.4) SEC INR 0.9 (0.9-1.1) Sodium 142 (135-145) mmol/L Potassium 3.7 (3.3-5.1) mmol/L Chloride 108 (96-108) mmol/L Carbon Dioxide 26 (22-29) mmol/L Anion Gap 12 (12-20) BUN 18 H (9-16) mg/dL Creatinine 0.90 (0.5-1.4) mg/dL Estim Creat Clear Calc 100.5 Estimated GFR > 60 Random Glucose 142 H (60-115) mg/dL Calcium 9.2 (8.4-10.2) mg/dL Total Bilirubin 0.4 (0.0-1.0) mg/dL AST 29 (5-37) U/L ALT 25 (0-40) U/L Alkaline Phosphatase 97 (39-117) U/L Total Protein 8.1 H (6.5-8.0) g/dL Albumin 4.6 (3.5-5.0) g/dL Lipase 25 (8-78) U/L Blood Type A Positive Antibody Screen NEGATIVE Discharge Plan Discharge Clinical Impression: Renal cyst, Fracture of rib Patient Disposition: Home, Self-Care Instructions: Rib Fracture (ED), Kidney Cyst (ED) Additional Instructions: No intra-abdominal organs or vascular structure injury. Acute minimally displaced rib fractures, left ninth and 10th ribs. Sigmoid colon diverticulosis/diverticular disease. Atherosclerosis. Grade 1 anterolisthesis L4-5. Bilateral renal cysts. please follow-up with your doctor closely for the bilateral kidney cysts. As well as the large abrasion to the left flank area. Use spirometry 5 times a day to prevent pneumonia pneumothorax from the rib fracture Prescriptions: New oxycodone 5 mg tablet 5 mg PO Q8H PRN (Reason: pain) Qty: 7 0RF Rx Instructions: Partial Fill upon patient request. No Action nabumetone 750 mg tablet 750 mg PO DAILY 90 Days Qty: 90 1RF Referrals: Sydney Zee MD [Primary Care Provider] - 09/24/24 Print Language: Setswana
[2024-09-22 12:41] LABS: MANUAL DIFF FLAG NO
[2024-09-22 12:43] LABS: Basophils Percent Auto 0.4 % (0-2); Eosinophils Absolute Auto 0.1 X10*3/uL (0.0-0.4); Eosinophils Percent Auto 0.7 % (0-4); Hematocrit 43.3 % (42.0-52.0); Hemoglobin 14.8 g/dl (14.0-18.0); Imm Gran Abs Auto 0.06 X10*3/uL (0.00-0.03); Imm Gran Pct Auto 0.7 % (0.0-0.4); Lymphocytes Absolute Auto 2.1 X10*3/uL (1.2-4.9); Mean Corpuscular HGB Conc 34.2 g/dl (31.0-36.0); Mean Corpuscular Hemoglobin 31.2 pg (27.0-33.0); Mean Corpuscular Volume 91.2 fL (80.0-98.0); Mean Platelet Volume 9.9 fL (9.4-12.4); Monocytes Absolute Auto 0.5 X10*3/uL (0.1-1.2); Monocytes Percent Auto 6.6 % (2-11); Neutrophils Absolute Auto 5.3 x10*3/uL (2.0-8.3); Neutrophils Percent Auto 65.6 % (45-73); Platelet Count 289 X10*3/uL (160-400); Red Blood Count 4.75 X10*6/uL (4.60-5.80); Red Cell Distribution Width 12.8 % (11.0-16.0)
[2024-09-22 12:54] LABS: INTERNATIONAL NORM RATIO 0.9 (0.9-1.1); Prothrombin Time 10.8 SEC (10.9-12.4)
--- NOTE | 2024-09-22 12:55 | ED_ITS ---
HPI - Back Pain/Injury General Chief Complaint: Back Pain/Injury Stated Complaint: Back injury Time Seen by Provider: 09/22/24 12:50 History of Present Illness HPI Narrative: Patient fell off a Truck then hit the forklift, bounce off the forklift subsequently landed on the floor.presented today with having pain to the left flank area. Question head injury to the occipital area. Patient denies loss of consciousness there is no nausea no vomiting. Denies recreational drug use. Denies any history of being on blood thinners. No alcohol. Denies any focal weakness complaining of excruciating pain to the left lower rib area. Left flank area. Patient is from home previously well. Related Data Previous Rx's ?Medication ?Instructions ?Recorded nabumetone 750 mg tablet 750 mg PO DAILY 90 days #90 tabs 06/03/24 oxycodone 5 mg tablet 5 mg PO Q8H PRN pain #7 tabs 09/22/24 Allergies Allergy/AdvReac Type Severity Reaction Status Date / Time No Known Allergies Allergy Verified 09/22/24 12:20 Review of Systems 2 Review of Systems: no fever no chills not on blood thinners. No focal weakness. Yes all other systems are reviewed and are negative PMFSH Past Medical History Medical History Immunization due Left foot pain Physical exam Anxiety Insomnia Hypertension H/O ETOH abuse Surgical History H/O hand surgery Family History Family History Mother Diabetes Hypertension Father No problems noted. Son Stroke Social History Social History Housing: Apartment Alcohol intake: former Patient Tobacco Use Status: Former Tobacco user Tobacco use type: Cigarette e-Cigarette/Vaping Use: Never Used Second Hand Smoke Exposure: No Advance Directives: No Advance Directives Information Provided: Yes Do you have a plan to hurt others: No Plan service: No Current occupational status: employed Current occupational exposures/hazards: No Cognitive needs: No Hearing needs: No Vision needs: No Physical Exam 2 Vital Signs: Vital Signs: Last Vital Signs Temp 36.3 F L 09/22/24 12:16 Pulse 54 09/22/24 14:12 Resp 16 09/22/24 14:12 BP 149/80 H 09/22/24 14:12 Pulse Ox 97 09/22/24 14:13 O2 Del Method Nasal Cannula 09/22/24 14:13 O2 Flow Rate 2 09/22/24 14:13 BMI result Body Mass Index 27.9 Appearance: Alert. Oriented X3. No acute distress. Eyes: Pupils equal, round and reactive to light. ENT: Pharynx normal. Neck: Normal inspection. Neck supple. No lymph nodes noted. No crepitus CVS: Normal heart rate and rhythm. Pulses normal. Normal S1 and S2 Respiratory: No respiratory distress. Breath sounds normal. No Wheezing. No rales Abdomen: Significant abrasion to the left flank area. Pain to the left posteriorlower rib area on palpation. no crepitus.No rigidity. No distention. good BS x4 Skin: Skin warm and dry. Normal skin color. Normal skin turgor. Extremities: No lower extremity edema. Neurovascular intact to all extremities. No Lacerations. No Rash Neuro: Oriented X 3. No motor deficit. No sensory deficit. Moving all extermities. No slurred speech Medications Administered Discontinued Medications Generic Name Dose Route Start Last Admin Trade Name Realq PRN Reason Stop Dose Admin Hydromorphone HCl 0.5 mg 09/22/24 12:50 09/22/24 13:03 Hydromorphone Hcl 0.5 Mg/0.5 Ml Syringe IVPUSH 09/22/24 12:51 0.5 mg ONCE ONE Administration Protocol Hydromorphone HCl 0.5 mg 09/22/24 13:12 09/22/24 13:42 Hydromorphone Hcl 0.5 Mg/0.5 Ml Syringe IVPUSH 09/22/24 13:13 0.5 mg ONCE ONE Administration Protocol Hydromorphone HCl 0.5 mg 09/22/24 13:16 09/22/24 14:14 Hydromorphone Hcl 0.5 Mg/0.5 Ml Syringe IVPUSH 09/22/24 13:17 0.5 mg ONCE ONE Administration Protocol Medical Decision Making Medical Decision Making MDM Narrative: Patient had a significant mechanism of trauma not on blood thinners denies any alcohol or drugs. Taken to the CT scanner CT head CT C-spine CT chest abdomen pelvis was done. It did show 2 rib fracture on the left side. There is no pneumothorax. There is no gross pulmonary contusion. There is no evidence for solid organ injury in the abdomen. Intracranially there was no bleed. There is no C-spine fracture noted. Will have patient follow-up with primary physician. Head injury precaution. Incentive spirometry for the rib fracture pain medication for the fracture tetanus was updated. Patient's O2 sat was normal. Will discharge home. Differential Diagnosis Differential Diagnoses: The differential diagnosis associated with the presentation includes Intracranial bleed, skull fracture, C-spine injury, chest injury. , rib fracture, pulmonary contusion, pneumothorax, intra-abdominal pathology Admission/Observation Consideration of admission/observation: Escalation of care including admission/observation considered Lab Data MDM Lab Attestation statement: I reviewed the patient's lab results. 09/22/24 12:35 09/22/24 12:35 Labs: Lab Results 09/22/24 Range/Units 12:35 WBC 8.0 (4.8-10.8) X10*3/uL RBC 4.75 (4.60-5.80) X10*6/uL Hgb 14.8 (14.0-18.0) g/dl Hct 43.3 (42.0-52.0) % MCV 91.2 (80.0-98.0) fL MCH 31.2 (27.0-33.0) pg MCHC 34.2 (31.0-36.0) g/dl RDW 12.8 (11.0-16.0) % Plt Count 289 (160-400) X10*3/uL MPV 9.9 (9.4-12.4) fL Immature Gran % (Auto) 0.7 H (0.0-0.4) % Neut % (Auto) 65.6 (45-73) % Lymph % (Auto) 26.0 (20-40) % [place] % (Auto) 6.6 (2-11) % Eos % (Auto) 0.7 (0-4) % Baso % (Auto) 0.4 (0-2) % Lymph # (Auto) 2.1 (1.2-4.9) X10*3/uL [place] # (Auto) 0.5 (0.1-1.2) X10*3/uL Eos # (Auto) 0.1 (0.0-0.4) X10*3/uL Baso # (Auto) 0.0 (0.0-0.2) X10*3/uL Abs Immat Gran (auto) 0.06 H (0.00-0.03) X10*3/uL Absolute Neuts (auto) 5.3 (2.0-8.3) x10*3/uL Absolute Nucleated RBC 0.000 (0.0-0.012) X10*3/uL Nucleated RBC % (auto) 0.0 (0.0-0.2) /100WBC PT 10.8 L (10.9-12.4) SEC INR 0.9 (0.9-1.1) Sodium 142 (135-145) mmol/L Potassium 3.7 (3.3-5.1) mmol/L Chloride 108 (96-108) mmol/L Carbon Dioxide 26 (22-29) mmol/L Anion Gap 12 (12-20) BUN 18 H (9-16) mg/dL Creatinine 0.90 (0.5-1.4) mg/dL Estim Creat Clear Calc 100.5 Estimated GFR > 60 Random Glucose 142 H (60-115) mg/dL Calcium 9.2 (8.4-10.2) mg/dL Total Bilirubin 0.4 (0.0-1.0) mg/dL AST 29 (5-37) U/L ALT 25 (0-40) U/L Alkaline Phosphatase 97 (39-117) U/L Total Protein 8.1 H (6.5-8.0) g/dL Albumin 4.6 (3.5-5.0) g/dL Lipase 25 (8-78) U/L Blood Type A Positive Antibody Screen NEGATIVE Independent Interpretation I performed an independent interpretation of an: CT Scan ( CT head was grossly negative) Radiology Impression Discussion of test interpretation with radiology: I have reviewed the radiologist's reading. Radiologist Impression: No intra-abdominal organs or vascular structure injury. Acute minimally displaced rib fractures, left ninth and 10th ribs. Sigmoid colon diverticulosis/diverticular disease. Atherosclerosis. Grade 1 anterolisthesis L4-5. Bilateral renal cysts. CT head negative CT C-spine negative Tests considered The following testing was considered but not selected: MRI of the head was not done Prescription Management I considered prescription management with: Antibiotic ( not needed) Discharge Plan Discharge Clinical Impression: Renal cyst, Fracture of rib Patient Disposition: Home, Self-Care Instructions: Rib Fracture (ED), Kidney Cyst (ED) Additional Instructions: No intra-abdominal organs or vascular structure injury. Acute minimally displaced rib fractures, left ninth and 10th ribs. Sigmoid colon diverticulosis/diverticular disease. Atherosclerosis. Grade 1 anterolisthesis L4-5. Bilateral renal cysts. please follow-up with your doctor closely for the bilateral kidney cysts. As well as the large abrasion to the left flank area. Use spirometry 5 times a day to prevent pneumonia pneumothorax from the rib fracture Prescriptions: New oxycodone 5 mg tablet 5 mg PO Q8H PRN (Reason: pain) Qty: 7 0RF Rx Instructions: Partial Fill upon patient request. No Action nabumetone 750 mg tablet 750 mg PO DAILY 90 Days Qty: 90 1RF Referrals: Sydney Zee MD [Primary Care Provider] - 09/24/24 Print Language: [place]
[2024-09-22] MEDS: HYDROmorphone HCl 0.5 MG/0.5 ML SYRINGE IVPUSH ×3 (13:03→14:14)
[2024-09-22 13:08] LABS: Alanine Aminotransferase 25 U/L (0-40); Albumin Level 4.6 g/dL (3.5-5.0); Alkaline Phosphatase 97 U/L (39-117); Anion Gap 12 (12-20); Aspartate Amino Transferase 29 U/L (5-37); Bilirubin Total 0.4 mg/dL (0.0-1.0); Blood Urea Nitrogen 18 mg/dL (9-16); Calcium 9.2 mg/dL (8.4-10.2); Carbon Dioxide 26 mmol/L (22-29); Chloride 108 mmol/L (96-108); Creatinine Clr Calc Pharmacy 100.5; Estimated Glomerular Filt Rate > 60; Glucose Random 142 mg/dL (60-115); Lipase 25 U/L (8-78); Potassium 3.7 mmol/L (3.3-5.1); Sodium 142 mmol/L (135-145); Total Protein 8.1 g/dL (6.5-8.0)
--- NOTE | 2024-09-22 13:43 | PC.NURSE ---
Patient up walking back and forth to CT scan
--- NOTE | 2024-09-22 13:49 | PC.NURSE ---
Patient in CT scan
--- NOTE | 2024-09-22 13:51 | PC.NURSE ---
Patient has collar on, sitting up in bedm medicated for pain, unable to lay back. monitor VS and pain
[2024-09-22] MEDS: Diphth,Pertus(ACell),Tet Adult 0.5 ML SYRINGE IM (15:29)
== END 2024-09-22 15:36 | disposition home or self-care (01) ==
PROVIDERS: Physician Assistant; Emergency Provider Emergency Medicine Emergency Medical Services; PCP Internal Medicine
DX: S22.32XA Fracture of one rib, left side, initial encounter for closed fracture (principal); S39.92XA Unspecified injury of lower back, initial encounter; S30.811A Abrasion of abdominal wall, initial encounter; R51.9 Headache, unspecified; R07.81 Pleurodynia; R07.89 Other chest pain; N28.1 Cyst of kidney, acquired; R10.2 Pelvic and perineal pain; M54.2 Cervicalgia; W17.89XA Other fall from one level to another, initial encounter; Y93.89 Activity, other specified; Y92.89 Other specified places as the place of occurrence of the external cause; Y99.8 Other external cause status; Z23 Encounter for immunization; Z87.891 Personal history of nicotine dependence
CPT/HCPCS: 36415; 70450; 71260; 72125; 74177; 80053; 83690; 85025; 85610; 86850; 86900; 86901; 90471; 90715; 96374; 96376; 99284; J1171

== ENCOUNTER → 2024-09-22 12:19 | Outpatient (BNV) | payer OTHER, SELFPAY | PROVIDERS: Emergency Provider Emergency Medicine Emergency Medical Services; PCP Internal Medicine; Visit Provider Radiology Diagnostic Radiology | DX: R10.9 Unspecified abdominal pain (principal) | CPT/HCPCS: 70450; 71260; 72125; 74177 ==

== ENCOUNTER 2024-09-23 11:27 | Outpatient (AMB) | payer OTHER, SELFPAY ==
--- NOTE | 2024-09-23 11:36 | A.OFFPC_ITS ---
Vital Signs 09/23/24 11:37 Height 5 ft 11 in Weight 216 lb BMI 30.1 BP 184/100 H Blood Pressure Location Lt brachial Position Sitting Pulse 52 Pulse Source Pulse Oximeter Pulse Oximetry (%) 96 Oxygen Delivery Method Room Air Intake Visit Reasons: [facility] LT 10/19 & RT 11/03-see comm Intake Note: Patient is here for a Pre-op for Left LT and RT eye surgery scheduled with on 10/19/24 & 11/03/24. Environmental Systems Coordinator Required: No Accompanied by: Self / Same As Patient Allergies No Known Allergies Allergy (Verified 09/23/24 12:14) Medication List - Last Reconciled 09/23/24 by Sydney Randall MD nabumetone 750 mg PO DAILY 90 days oxycodone 5 mg PO Q8H PRN Tobacco use date assessed: 06/03/24 Dental Screening Dental Screen Date: 06/03/24 HPI HPI Comments History of Present Illness Details The patient is a 59-year-old male presenting with the need for pre- operative clearance for cataract surgery scheduled for next month. He was previously advised to undergo an electrocardiogram as part of the surgery preparation. The patient has a history of cataracts that require surgical intervention. Denies any chest pain or shortness on breath. Elevated blood pressure most likely due to pain due to rib fractures that happened yesterday. Labs and EKG are pending for medical clearance. He also presents with a recent head contusion that occurred on September 22 after hitting his head hard, resulting in a significant headache the night following the incident. The patient underwent a CT scan of the head and neck, which showed no fractures but did reveal arthritis in the cervical area. The patient's symptoms following the head injury include neck pain without any chest pain. He was advised to monitor for severe symptoms such as shortness of breath or chest pain. The patient also reports a history of osteoarthritis, having previously undergone surgical procedures involving metal placements, and he experiences some pain due to arthritis, particularly after extended physical activity. Additionally, the patient has a history of tobacco and alcohol use but has since ceased both habits. [facility] Medical History Immunization due Left foot pain Physical exam Anxiety Insomnia Hypertension H/O ETOH abuse Surgical History H/O hand surgery Family History Mother Diabetes Hypertension Father No problems noted. Son Stroke Social History Housing: Apartment Alcohol intake: former Patient Tobacco Use Status: Former Tobacco user Tobacco use type: Cigarette e-Cigarette/Vaping Use: Never Used Second Hand Smoke Exposure: No service: No Current occupational status: employed Current occupational exposures/hazards: No Cognitive needs: No Hearing needs: No Vision needs: No Questionnaire Thrive Questionnaire Date Thrive assessed: 06/03/24 I am a: Patient What is your living situation today?: I have a steady place to live Within the past 12 months, did the food you bought not last and you didn't have the money to get more?: Never true Within the past 12 months, did you worry whether your food would run out before you got money to buy more?: Sometimes True Do you have trouble paying for medicines?: Yes Do you have trouble getting transportation to medical appointments?: No Do you have trouble paying your heating and electricity bill?: Yes Do you have trouble taking care of your child, family member or friend?: No Do you have trouble with day-to-day activities such as bathing, preparing meals, shopping, managing finances, etc.?: No Are you currently unemployed and looking for a job?: No Are you interested in more education?: Yes Currently or been in a relationship where the following occur: No concerns reported THRIVE Score: 2 IRMA-7 AMB Questionnaire IRMA-7 Date IRMA - 7 assessed: 06/03/24 Source: Developed by Drs. Cristofer Wetzel, Alicja Irby, Viet Lee and colleagues, with an educational reed from [employer]. Review of Systems Const Details: - Neurological: Reports pain in the neck and previous head injury. - Musculoskeletal: Reports pain due to arthritis in extremities. Physical exam (Primary Care) Vital Signs: Last Vital Signs Pulse 52 09/23/24 11:37 BP 184/100 H 09/23/24 11:37 Pulse Ox 96 09/23/24 11:37 Oxygen Delivery Method Room Air 09/23/24 11:37 BMI result Body Mass Index 30.1 BMI Assessment/Plan discussion: High BMI High, discussed plan: lifestyle, weight reduction, dietary and physical activity Tobacco/Smoking Status: Tobacco use Status Tobacco use date assessed 06/03/24 09/23/24 11:36 Patient Tobacco Use Status Former Tobacco user 09/23/24 11:36 Tobacco use type Cigarette 09/23/24 11:36 e-Cigarette/Vaping Use Never Used 09/23/24 11:36 Thrive Assessment: Date of Thrive Assessment Date Thrive assessed 06/03/24 09/23/24 11:36 Currently or been in a relationship where the following occur: No concerns reported Const Other: General: No confusion Neck: Normal visual inspection and Yes supple Respiratory: Normal respiratory effort, clear to auscultation bilaterally, left ribcage tenderness Cardiovascular: No jugular venous distension, regular rate, regular rhythm, S1 normal heart sound present and S2 normal heart sound present Extremities: Full ROM Psychology: Grossly normal Coding Level of Care Code Est Pt Level 4 (74537) Complex EM visit Add On G2211 Diagnoses Pre-op evaluation Z01.818 Rib fracture S22.39XA Elevated blood pressure reading without diagnosis of hypertension R03.0 Time Spent (min) 22 Assessment & Plan Assessment & Plan (1) Pre-op evaluation: Code(s): Z01.818 - Encounter for other preprocedural examination Category: Medical (2) Rib fracture: Code(s): S22.39XA - Fracture of one rib, unspecified side, initial encounter for closed fracture Category: Medical (3) Elevated blood pressure reading without diagnosis of hypertension: Code(s): R03.0 - Elevated blood-pressure reading, without diagnosis of hypertension Category: Medical Plan - Pending EKG and labs for pre-operative clearance including an electrocardiogram for cataract surgery. - Continue monitoring neck pain and symptoms from the head contusion. Advise to seek medical attention if severe symptoms such as difficulty breathing or severe pain occur. - Manage osteoarthritis symptoms with pain control; consider physical activity adjustment as needed. - Re-evaluate cervical arthritis management; consider physical therapy or adjustments in activity. - Maintain tobacco and alcohol cessation. Patient was informed and verbally consented to the use of an ambient scribe for clinic note documentation during this visit. During the visit, I discussed the need for an electrocardiogram as part of the pre-operative clearance for upcoming cataract surgery scheduled for October 19. I reviewed the diagnostic findings from the CT scan of the head and neck, explaining that while cervical arthritis was noted, no fractures were identified following the recent head contusion. I discussed the importance of monitoring for severe symptoms such as shortness of breath or severe neck pain and advised immediate medical evaluation if these should occur. We also addressed ongoing management of osteoarthritis pain, highlighting the importance of adapting physical activities to manage symptoms. I confirmed the patient's understanding of maintaining tobacco and alcohol cessation for his overall health. Orders: Orders ECG 12 lead EKG Today Z01.818 - Encounter for other preprocedural examination XR chest 2V 4 Weeks S22.39XA - Fracture of one rib, unspecified side, initial encounter for closed fracture Comprehensive [place]. Panel Fast Today Z01.818 - Encounter for other preprocedural examination Medications: Changed From oxycodone Partial Fill upon patient request. 5 mg PO Q8H PRN 7 tabs 0RF pain S22.39XA - Fracture of one rib, unspecified side, initial encounter for closed fracture To oxycodone Partial Fill upon patient request. 5 mg PO Q8H PRN 90 tabs 0RF pain 30 days S22.39XA - Fracture of one rib, unspecified side, initial encounter for closed fracture Patient Instructions: - Undergo electrocardiogram for surgery clearance. - Monitor for severe pain or breathing difficulties following head injury; seek medical attention if they occur. - Adjust physical activity as needed to manage arthritis pain. - Continue abstaining from tobacco and alcohol. - Follow up if any new or worsening symptoms develop.
[2024-09-23 11:37] VITALS: BP 184/100; PULSE 52; O2SAT 96; BMI 30.1
== END 2024-09-23 12:34 | disposition home or self-care (01) ==
PROVIDERS: PCP Internal Medicine; Visit Provider Internal Medicine
DX: Z01.818 Encounter for other preprocedural examination (principal); S22.39XA Fracture of one rib, unspecified side, initial encounter for closed fracture; R03.0 Elevated blood-pressure reading, without diagnosis of hypertension

== ENCOUNTER → 2024-09-23 11:27 | Outpatient (BNVA) | payer OTHER, SELFPAY | PROVIDERS: PCP Internal Medicine; Visit Provider Internal Medicine | DX: Z01.818 Encounter for other preprocedural examination (principal); R03.0 Elevated blood-pressure reading, without diagnosis of hypertension | CPT/HCPCS: 99212 ==

== ENCOUNTER 2024-09-24 07:38 | Outpatient (REF) | payer OTHER, SELFPAY ==
[2024-09-24 08:37] LABS: Alanine Aminotransferase 29 U/L (0-40); Albumin Level 4.7 g/dL (3.5-5.0); Alkaline Phosphatase 100 U/L (39-117); Anion Gap 13 (12-20); Aspartate Amino Transferase 29 U/L (5-37); Bilirubin Total 0.7 mg/dL (0.0-1.0); Blood Urea Nitrogen 14 mg/dL (9-16); Calcium 9.9 mg/dL (8.4-10.2); Carbon Dioxide 30 mmol/L (22-29); Chloride 104 mmol/L (96-108); Cholesterol 175 mg/dL (<200); Estimated Glomerular Filt Rate > 60; Glucose Fasting 110 mg/dL (60-99); HDL Cholesterol 58 mg/dL (>40); LDL Cholesterol Calculated 99 mg/dL (<100); Potassium 4.7 mmol/L (3.3-5.1); Sodium 142 mmol/L (135-145); Total Protein 8.5 g/dL (6.5-8.0); Triglycerides 91 mg/dL (<150)
== END 2024-09-24 07:39 | disposition home or self-care (01) ==
LOC: HO.LAB 07:38
PROVIDERS: PCP Internal Medicine; Visit Provider Internal Medicine
DX: Z00.00 Encounter for general adult medical examination without abnormal findings (principal)
CPT/HCPCS: 36415; 80053; 80061

== ENCOUNTER → 2024-10-12 11:32 | Outpatient (REF) | payer OTHER, SELFPAY ==
--- NOTE | 2024-10-12 11:36 | ECG_ITS ---
Test Reason : PRE OP Blood Pressure : / mmHG Vent. Rate : 048 BPM Atrial Rate : 048 BPM P-R Int : 190 ms QRS Dur : 124 ms QT Int : 470 ms P-R-T Axes : 026 -47 -26 degrees QTc Int : 419 ms Sinus bradycardia Left anterior fascicular block Left ventricular hypertrophy with QRS widening ( R in aVL , [place] product ) Abnormal ECG No significant changes when compared with the previous EKG of 03 april 2022 Referred By: Sydney Randall Electronically Signed By:AIMEE ELLISON
== END ==
LOC: HO.CARD 11:32
PROVIDERS: PCP Internal Medicine; Visit Provider Internal Medicine
DX: Z01.818 Encounter for other preprocedural examination (principal)
CPT/HCPCS: 93005

== ENCOUNTER → 2024-10-12 11:36 | Outpatient (BNV) | payer OTHER, SELFPAY | PROVIDERS: PCP Internal Medicine; Visit Provider Internal Medicine | DX: R07.9 Chest pain, unspecified (principal) | CPT/HCPCS: 93010 ==

== ENCOUNTER 2024-11-10 07:20 | Emergency (ER) | payer OTHER, SELFPAY ==
--- NOTE | ~2024-11-10 | XR_ITS ---
EXAMINATION: XR CHEST 2 VIEWS HISTORY: cough COMPARISON: Comparison is made with the prior examination dated 02/28/2019. FINDINGS: PA and lateral views of the chest are submitted. There is blunting of the left costophrenic angle, compatible with pleural thickening or a small pleural effusion. There is adjacent subsegmental atelectasis or scarring. The right lung is clear. There is no pneumothorax or pulmonary vascular congestion. The heart is normal in size. The bones are intact. XR/XR chest 2V IMPRESSION: Left posterolateral pleural thickening versus small pleural effusion. Left basilar subsegmental atelectasis versus scarring. Electronically signed by: Cristofer Leo MD 11/10/2024 08:34 AM EST
[2024-11-10 07:22] VITALS: BP 148/107; PULSE 83; RESP 20; TEMP 38.2; O2SAT 94; BMI 28.6
[2024-11-10 07:42] LABS: MANUAL DIFF FLAG NO
[2024-11-10 07:49] LABS: Basophils Percent Auto 0.2 % (0-2); Eosinophils Percent Auto 0.2 % (0-4); Hematocrit 46.9 % (42.0-52.0); Imm Gran Abs Auto 0.01 X10*3/uL (0.00-0.03); Imm Gran Pct Auto 0.2 % (0.0-0.4); Lymphocytes Absolute Auto 0.9 X10*3/uL (1.2-4.9); Lymphocytes Percent Auto 14.5 % (20-40); Mean Corpuscular HGB Conc 34.1 g/dl (31.0-36.0); Mean Corpuscular Hemoglobin 30.2 pg (27.0-33.0); Mean Corpuscular Volume 88.7 fL (80.0-98.0); Mean Platelet Volume 9.6 fL (9.4-12.4); Monocytes Absolute Auto 0.6 X10*3/uL (0.1-1.2); Monocytes Percent Auto 10.2 % (2-11); Neutrophils Absolute Auto 4.4 x10*3/uL (2.0-8.3); Neutrophils Percent Auto 74.7 % (45-73); Platelet Count 276 X10*3/uL (160-400); Red Blood Count 5.29 X10*6/uL (4.60-5.80); Red Cell Distribution Width 12.7 % (11.0-16.0); White Blood Count 5.9 X10*3/uL (4.8-10.8)
[2024-11-10 08:03] LABS: Alanine Aminotransferase 22 U/L (0-40); Albumin Level 4.3 g/dL (3.5-5.0); Alkaline Phosphatase 128 U/L (39-117); Anion Gap 21 (12-20); Aspartate Amino Transferase 34 U/L (5-37); Bilirubin Total 0.4 mg/dL (0.0-1.0); Blood Urea Nitrogen 16 mg/dL (9-16); Calcium 9.2 mg/dL (8.4-10.2); Carbon Dioxide 24 mmol/L (22-29); Chloride 97 mmol/L (96-108); Creatinine Clr Calc Pharmacy 110.2; Estimated Glomerular Filt Rate > 60; Glucose Random 109 mg/dL (60-115); Lipase 40 U/L (8-78); Potassium 3.9 mmol/L (3.3-5.1); Sodium 138 mmol/L (135-145); Total Protein 8.7 g/dL (6.5-8.0)
[2024-11-10 08:20] LABS: Influenza A PCR POSITIVE (Negative); Influenza B PCR NEGATIVE (Negative); Resp Syncy Virus RNA Qual PCR NEGATIVE (Negative); SARS COV2 PCR INHOUSE NEGATIVE (Negative)
--- NOTE | 2024-11-10 10:01 | ED.GENADULT ---
HPI - General Adult General Chief complaint: Upper Respiratory Symptoms Stated complaint: Headache, body aches 3 days Time Seen by Provider: 11/10/24 10:00 Source: patient Mode of arrival: ambulatory Limitations: no limitations History of Present Illness ED Provider: Jazmyne Blanco PA-C HPI narrative: Patient is a 59 year old assigned male at with a history of anxiety, HTN, and LAFB presenting to the emergency department today with a headache, fever, chills, cough, and body aches. Patient states that over the last 3 days he has had a cough, headache, fever, chills, and body aches. Patient denies any dizziness, lightheadedness, abdominal pain, nausea, vomiting, blurry vision, double vision, loss of vision, chest pain, difficulty breathing, shortness of breath, back pain, night sweats, pain with urination, increased urinary frequency, increased urinary urgency, blood in his urine or stool, syncope or a near syncopal episode, recent trauma or falls, bowel incontinence, bladder incontinence, or any other complaints at this time. Onset (ago): day(s) (3) Relieving factors: none Exacerbating factors: none Associated symptoms: cough and fever/chills Treatments prior to arrival: none Related Data Previous Rx's ?Medication ?Instructions ?Recorded nabumetone 750 mg tablet 750 mg PO DAILY 90 days #90 tabs 06/03/24 oxycodone 5 mg tablet 5 mg PO Q8H PRN pain 30 days #90 09/23/24 tabs benzonatate 100 mg capsule 100 mg PO BID PRN cough 7 days #14 11/10/24 caps Allergies Allergy/AdvReac Type Severity Reaction Status Date / Time No Known Allergies Allergy Verified 11/10/24 07:27 Review of Systems Constitutional: Constitutional: Reports no additional constitutional complaints, Reports body ache(s), Reports chills, Reports fever(s), Reports headache(s) and Denies night sweats Eyes: Eyes: Reports no additional eye complaints, Denies blurry vision, Denies change in vision, Denies diplopia, Denies eye discharge, Denies loss of vision and Denies eye pain ENT: Denies dizziness and Reports headache(s) Cardiovascular: Cardiovascular: Reports no additional cardiovascular complaints, Denies chest pain, Denies lightheadedness, Denies Loss of Consciousness and Denies dyspnea Respiratory: Respiratory: Reports no additional respiratory complaints, Reports cough and Denies dyspnea Gastrointestinal: Gastrointestinal: Reports no additional gastrointestinal complaints, Denies abdominal pain, Denies melena, Denies hematochezia, Denies change in bowel habits and Denies change in stool character Genitourinary: Genitourinary: Reports no additional male genitourinary complaints, Denies hematuria, Denies oliguria, Denies difficulty urinating, Denies dysuria, Denies urinary frequency, Denies urinary hesitancy, Denies urinary incontinence and Denies urinary urgency Musculoskeletal: Musculoskeletal: Reports no additional musculoskeletal complaints, Denies numbness and Denies tingling Neurologic: Denies dizziness, Reports headache(s), Denies loss of vision, Denies numbness and Denies tingling Psychiatric: Psychiatric: Reports no additional psychiatric complaints Endocrine: Endocrine: Reports no additional endocrine complaints Hematologic/Lymphatic: Hematologic/Lymphatic: Reports no additional hematologic/lymphatic complaints Allergic/Immunologic: Allergic/Immunologic: Reports no additional allergic/immunologic complaints [facility] Past Medical History Attestation statement: The following information was validated with the patient. Source: old records reviewed and nursing notes reviewed Medical History Immunization due Left foot pain Physical exam Anxiety Insomnia Hypertension H/O ETOH abuse Surgical History H/O hand surgery Family History Family History Mother Diabetes Hypertension Father No problems noted. Son Stroke Social History Social History Housing: Apartment Alcohol intake: former Patient Tobacco Use Status: Former Tobacco user Tobacco use type: Cigarette e-Cigarette/Vaping Use: Never Used Second Hand Smoke Exposure: No service: No Current occupational status: employed Current occupational exposures/hazards: No Cognitive needs: No Hearing needs: No Vision needs: No Physical Exam ED Vital Signs: Vital Signs - 24 hr 11/10/24 07:22 11/10/24 10:14 Temperature 100.7 F H 100.7 F H Pulse Rate 83 83 Respiratory Rate 20 20 Blood Pressure 148/107 H 148/107 H Pulse Oximetry 94 94 Oxygen Delivery Method Room Air Room Air BMI result Body Mass Index 28.6 Const General: cooperative, no acute distress, alert and awake Nutritional Appearance: well nourished Orientation/consciousness: patient oriented x3 Limitations: no limitations HENMT Head: Yes normal to inspection and Yes atraumatic Ears: hearing grossly normal bilaterally and external ears normal General nose exam: Normal external nose present, no nasal discharge noted and no epistaxis Face and sinus: Yes normal facial exam, No abrasion and No laceration Mouth: Normal oral and palatal mucosa present, no drooling and no muffled voice Eyes General: appearance normal, both eyes and all related structures Periorbital: periorbital findings normal Eyelids: Yes eyelids normal Conjunctivae: conjunctivae normal Pupils: Equal, round and reactive pupils present EOM: EOMs intact bilaterally Neck Neck: Yes normal visual inspection, Yes full ROM and Yes no lymphadenopathy Chest Chest palpation & inspection: normal inspection of the chest Resp Effort & Inspection: normal respiratory effort and able to speak in complete sentences GI Inspection: Yes normal to inspection Neuro General: patient oriented x3 and moves all extremities Cranial nerves: Yes Equal, round and reactive pupils present Cognition (Neuro): normal cognition Extrem General: Yes normal to inspection, Yes full ROM and Yes capillary refill normal Psych Appearance: grossly normal Mental Status: mental status grossly normal Affect: normal affect Attitude: cooperative Thought process: Normal thought process present Thought content: Normal thought content present Insight: Good insight present (Psych) Medications Administered Discontinued Medications Generic Name Dose Route Start Last Admin Trade Name Freq PRN Reason Stop Dose Admin Acetaminophen 975 mg 11/10/24 10:11/10/24 10:12 Acetaminophen 325 Mg Tablet PO 11/10/24 10:04 975 mg ONCE ONE Administration Benzonatate 100 mg 11/10/24 10:11/10/24 10:12 Benzonatate 100 Mg Capsule PO 11/10/24 10:04 100 mg ONCE ONE Administration Ibuprofen 400 mg 11/10/24 10:03 11/10/24 10:12 Ibuprofen 400 Mg Tablet PO 11/10/24 10:04 400 mg ONCE ONE Administration Medical Decision Making Medical Decision Making [facility] Narrative: Patient is a 59 year old assigned male at with a history of anxiety, HTN, and LAFB presenting to the emergency department today with a headache, fever, chills, cough, and body aches. Patient's physical exam was unremarkable. Patient's blood work was unremarkable. Patient's chest x-ray showed no acute process. Patient's influenza test was positive. I explained my physical exam findings as well as all test results to the patient. I answered all questions asked by the patient. I stressed the importance of the patient taking his medication as directed (either prescribed or as the over the counter packaging recommends). I stressed the importance of the patient following up with his primary care provider. I stressed the importance of the patient returning to the emergency department immediately if his symptoms were to worsen or if he were to develop any dizziness, shortness of breath, difficulty breathing, chest pain, blurry vision, loss of vision, nausea, vomiting, abdominal pain, fever, chills, back pain, or any other complaints. Patient verbalized agreement and understanding with this treatment plan and discharge. Differential Diagnosis Differential Diagnoses: The differential diagnosis associated with the presentation includes Cough Viral illness Influenza RSV COVID-19 Admission/Observation Consideration of admission/observation: Escalation of care including admission/observation considered Patient would have been admitted to the hospital had his work up had any findings where hospital admission was appropriate and his clinical presentation warranted hospital admission. Lab Data [facility] Lab Attestation statement: I reviewed the patient's lab results. My interpretation of these results are in the [facility] Rationale portion of this note. 11/10/24 07:34 11/10/24 07:34 Labs: Lab Results 11/10/24 Range/Units 07:34 WBC 5.9 (4.8-10.8) X10*3/uL RBC 5.29 (4.60-5.80) X10*6/uL Hgb 16.0 (14.0-18.0) g/dl Hct 46.9 (42.0-52.0) % MCV 88.7 (80.0-98.0) fL MCH 30.2 (27.0-33.0) pg MCHC 34.1 (31.0-36.0) g/dl RDW 12.7 (11.0-16.0) % Plt Count 276 (160-400) X10*3/uL MPV 9.6 (9.4-12.4) fL Immature Gran % (Auto) 0.2 (0.0-0.4) % Neut % (Auto) 74.7 H (45-73) % Lymph % (Auto) 14.5 L (20-40) % [place] % (Auto) 10.2 (2-11) % Eos % (Auto) 0.2 (0-4) % Baso % (Auto) 0.2 (0-2) % Lymph # (Auto) 0.9 L (1.2-4.9) X10*3/uL [place] # (Auto) 0.6 (0.1-1.2) X10*3/uL Eos # (Auto) 0.0 (0.0-0.4) X10*3/uL Baso # (Auto) 0.0 (0.0-0.2) X10*3/uL Abs Immat Gran (auto) 0.01 (0.00-0.03) X10*3/uL Absolute Neuts (auto) 4.4 (2.0-8.3) x10*3/uL Absolute Nucleated RBC 0.000 (0.0-0.012) X10*3/uL Nucleated RBC % (auto) 0.0 (0.0-0.2) /100WBC Sodium 138 (135-145) mmol/L Potassium 3.9 (3.3-5.1) mmol/L Chloride 97 (96-108) mmol/L Carbon Dioxide 24 (22-29) mmol/L Anion Gap 21 H (12-20) BUN 16 (9-16) mg/dL Creatinine 0.83 (0.5-1.4) mg/dL Estim Creat Clear Calc 110.2 Estimated GFR > 60 Random Glucose 109 (60-115) mg/dL Calcium 9.2 D (8.4-10.2) mg/dL Total Bilirubin 0.4 (0.0-1.0) mg/dL AST 34 (5-37) U/L ALT 22 (0-40) U/L Alkaline Phosphatase 128 H (39-117) U/L Total Protein 8.7 H (6.5-8.0) g/dL Albumin 4.3 (3.5-5.0) g/dL Lipase 40 (8-78) U/L Influenza Type A (PCR) POSITIVE A (Negative) Influenza Type B (PCR) NEGATIVE (Negative) RSV RNA Qual (PCR) NEGATIVE (Negative) SARS-CoV-2 RNA (RT-PCR) NEGATIVE (Negative) Independent Interpretation I performed an independent interpretation of an: Plain X-Ray Interpretation: My interpretation is in agreement with the radiologist's impression of this imaging study. EXAMINATION: XR CHEST 2 VIEWS HISTORY: cough COMPARISON: Comparison is made with the prior examination dated 02/28/2019. FINDINGS: PA and lateral views of the chest are submitted. There is blunting of the left costophrenic angle, compatible with pleural thickening or a small pleural effusion. There is adjacent subsegmental atelectasis or scarring. The right lung is clear. There is no pneumothorax or pulmonary vascular congestion. The heart is normal in size. The bones are intact. XR/XR chest 2V IMPRESSION: Left posterolateral pleural thickening versus small pleural effusion. Left basilar subsegmental atelectasis versus scarring. Electronically signed by: Cristofer Leo MD 11/10/2024 08:34 AM EST Dictated By: Cristofer Leo MD Signed By: Electronically signed by Cristofer Leo MD 11/10/24 0834 Radiology Impression Discussion of test interpretation with radiology: I have reviewed the radiologist's reading. Discharge Plan Discharge Clinical Impression: Influenza Patient Disposition: Home, Self-Care Instructions: Influenza (DC) Additional Instructions: Follow up with your primary care provider. Return to the emergency department immediately if your symptoms worsen or if you develop any dizziness, shortness of breath, difficulty breathing, chest pain, blurry vision, loss of vision, nausea, vomiting, abdominal pain, fever, chills, back pain, or any other complaints. Reynold?seguimiento?con fu m?dico de atenci?n primaria. Acuda inmediatamente al servicio de urgencias si dave s?ntomas empeoran o si presenta falta de aliento, dificultad para respirar, dolor tor?cico, mareos, aturdimiento, dolor de espalda, dolor abdominal, fiebre, escalofr?os o cualquier otro s?ntoma. Prescriptions: New benzonatate 100 mg capsule 100 mg PO BID PRN (Reason: cough) 7 Days Qty: 14 0RF No Action nabumetone 750 mg tablet 750 mg PO DAILY 90 Days Qty: 90 1RF oxycodone 5 mg tablet 5 mg PO Q8H PRN (Reason: pain) 30 Days Qty: 90 0RF Rx Instructions: Partial Fill upon patient request. Referrals: Sydney Zee MD [Primary Care Provider] - Interventions: ED Discharge Assessment Last Done: 11/10/24 10:14 Discharge Date/Time: 11/10/24 10:17 Print Language: Mongolian
[2024-11-10] MEDS: Acetaminophen 325 MG TABLET 975 MG PO (10:12)
[2024-11-10] MEDS: Ibuprofen 400 MG TABLET PO (10:12)
[2024-11-10] MEDS: Benzonatate 100 MG CAPSULE PO (10:12)
[2024-11-10 10:14] VITALS: BP 148/107; PULSE 83; RESP 20; TEMP 38.2; O2SAT 94
== END 2024-11-10 10:17 | disposition home or self-care (01) ==
PROVIDERS: Emergency Provider Emergency Medicine; PCP Internal Medicine
DX: J10.1 Influenza due to other identified influenza virus with other respiratory manifestations (principal); R51.9 Headache, unspecified; R50.9 Fever, unspecified; R06.9 Unspecified abnormalities of breathing; M79.10 Myalgia, unspecified site; R05.9 Cough, unspecified; Z03.818 Encounter for observation for suspected exposure to other biological agents ruled out; Z87.891 Personal history of nicotine dependence
CPT/HCPCS: 0241U; 71046; 80053; 83690; 85025; 99283

== ENCOUNTER → 2024-11-10 08:10 | Outpatient (BNV) | payer OTHER, SELFPAY | PROVIDERS: PCP Internal Medicine; Visit Provider Radiology Diagnostic Radiology | DX: R05.9 Cough, unspecified (principal) | CPT/HCPCS: 71046 ==

== ENCOUNTER 2024-11-27 09:46 | Outpatient (AMB) | payer OTHER, SELFPAY ==
--- NOTE | 2024-11-27 10:04 | A.OFFPC_ITS ---
Vital Signs 11/27/24 10:05 Height 5 ft 11 in Weight 217 lb 6 oz BMI 30.3 BP 126/68 Blood Pressure Location Lt brachial Position Sitting Pulse 55 Pulse Source Pulse Oximeter Temp 96.9 F Temp Source Temporal Artery Scan Pulse Oximetry (%) 95 Oxygen Delivery Method Room Air Intake Visit Reasons: High BP/ slow heart rate Intake Note: Patient is here to follow up on High BP, slow hear rate. Compressor Repairer Required: No Prototype Special Build: Present Accompanied by: Spouse Allergies No Known Allergies Allergy (Verified 11/27/24 10:05) Tobacco use date assessed: 11/27/24 Dental Screening Dental Screen Date: 11/27/24 Did you have a dental visit in the last 12 months?: No Did you have a dental problem in the last 6 months where you did not have access to dental care?: No Was dental information given to patient?: Patient has dentist HPI HPI Comments History of Present Illness Details 59 y/o male patient who presents to the clinic for HDF. Pmhx significant for anxiety, HTN, and LAFB. He was originally seen and evaluated at [facility] on 11/10/24 for Influenza A. He was admitted again at [facility] on 11/18/24 and discharged home 11/19/24 due to chest pain provoked with coughing and deep inspiration. Today Pt continues to have left sided chest pain injured his ribs after a Fall. Denies SOB or wheezing. Pt is also concern that his HR is low. 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 Pt currently takes Oxycodone for pain relief. [facility] Medical History (Updated 11/27/24 @ 10:41 by Cecily Villegas NP) Immunization due Left foot pain Physical exam Anxiety Insomnia Hypertension H/O ETOH abuse Surgical History (Updated 11/27/24 @ 10:08 by MATEUS Josue) History of cataract surgery H/O hand surgery Family History Mother Diabetes Hypertension Father No problems noted. Son Stroke Social History Housing: Apartment Alcohol intake: former Patient Tobacco Use Status: Former Tobacco user Tobacco use type: Cigarette e-Cigarette/Vaping Use: Never Used Second Hand Smoke Exposure: No service: No Current occupational status: employed Current occupational exposures/hazards: No Cognitive needs: No Hearing needs: No Vision needs: No Questionnaire PHQ-9 Over the last 2 weeks, how often have you been bothered by any of the following problems? 1. Little interest or pleasure in doing things: not at all 2. Feeling down, depressed, or hopeless: not at all 3. Trouble falling or staying asleep, or sleeping too much: not at all 4. Feeling tired or having little energy: not at all 5. Poor appetite or overeating: not at all 6. Feeling bad about yourself - or that you are a failure or have let yourself or your family down: not at all 7. Trouble concentrating on things, such as reading the newspaper or watching television: not at all 8. Moving or speaking so slowly that other people could have noticed. Or the opposite - being so fidgety or restless that you have been moving around a lot more than usual: not at all 9. Thoughts that you would be better off or of hurting yourself in some way: not at all Total score: 0 Depression Screening Interpretation: Negative Depression Screening Done: Yes Source: Developed by Drs. Cristofer Wetzel, Alicja Irby, Viet Lee and colleagues, with an educational reed from [employer] Thrive Questionnaire Date Thrive assessed: 11/27/24 AUDIT C Alcohol Use Questionnaire (AUDIT-C) 1. How often do you have a drink containing alcohol?: Never Total Score: 0 IRMA-7 AMB Questionnaire IRMA-7 Date IRMA - 7 assessed: 11/27/24 Feeling nervous, anxious, or on edge: 0 = Not at all Not being able to stop or control worryin = Not at all Worrying too much about different things: 0 = Not at all Trouble relaxin = Not at all Being so restless that it is hard to sit still: 0 = Not at all Becoming easily annoyed or irritable: 0 = Not at all Feeling afraid as if something awful might happen: 0 = Not at all Total IRMA-7 score (0-4 normal; 5-9 mild; 10-14 moderate; 15-21 severe): 0 Source: Developed by Drs. Cristofer Wetzel, Alicja Irby, Viet Lee and colleagues, with an educational reed from [employer] Review of Systems Const All systems reviewed & are unremarkable except as noted in HPI and below Physical exam (Primary Care) Vital Signs: Last Vital Signs Temp 96.9 F 11/27/24 10:05 Pulse 55 11/27/24 10:05 BP 126/68 11/27/24 10:05 Pulse Ox 95 11/27/24 10:05 Oxygen Delivery Method Room Air 11/27/24 10:05 BMI result Body Mass Index 30.3 Tobacco/Smoking Status: Tobacco use Status Tobacco use date assessed 11/27/24 11/27/24 10:10 Patient Tobacco Use Status Former Tobacco user 11/27/24 10:10 Tobacco use type Cigarette 11/27/24 10:10 e-Cigarette/Vaping Use Never Used 11/27/24 10:10 PHQ-9: PHQ-9 Score PHQ-9: Total score 0 11/27/24 10:10 Depression Screening Interpretation: Negative Thrive Assessment: Date of Thrive Assessment Date Thrive assessed 11/27/24 11/27/24 10:10 Const General: cooperative and no acute distress Nutritional Appearance: overweight Orientation/consciousness: patient oriented x3 Chest Chest palpation & inspection: no crepitus and localized rib tenderness with anteroposterior compression (left sided chest wall) Resp Effort & Inspection: normal respiratory effort and able to speak in complete sentences Cardio Rate: bradycardic Heart sounds: S1 normal heart sound present and S2 normal heart sound present Neuro General: patient oriented x3 Coding Level of Care Code Est Pt Level 4 (16005) Diagnoses Closed fracture of one rib of left side, initial encounter S22.32XA Encounter type: initial encounter Rib fracture type: single rib Fracture type: closed Laterality: left Bradycardia R00.1 Influenza A J10.1 Time Spent (min) 20 Assessment & Plan Assessment & Plan (1) Rib fracture: Code(s): S22.39XA - Fracture of one rib, unspecified side, initial encounter for closed fracture Category: Medical Qualifiers: Encounter type: initial encounter Rib fracture type: single rib Fracture type: closed Laterality: left Qualified Code(s): S22.32XA - Fracture of one rib, left side, initial encounter for closed fracture Plan: Acetaminophen and NSAIDs for pain relief Ice/Hot (2) Bradycardia: Code(s): R00.1 - Bradycardia, unspecified Category: Medical Plan: Advised to monitor his HR at home and keep a Log Advised to monitor for 1 week, then f/u with PCP (3) Influenza A: Code(s): J10.1 - Influenza due to other identified influenza virus with other respiratory manifestations Plan: Recovering, denies Respiratory symptoms.
[2024-11-27 10:05] VITALS: BP 126/68; PULSE 55; TEMP 36.1; O2SAT 95; BMI 30.3
--- OUTSIDE RECORDS SUMMARY | 2024-11-27 10:27 | XMS_ITS | Clinical Summary ---
Author Organization [employer] Address [address] [place] [address] [address] [place] [address] Care Team Providers Care Jet Man Name Role Phone Unavailable Primary Care Provider Unavailabl e Immunizations Name Administration Dates Next Due Hep B, adult 05/03/2022 MMR 04/03/2022 Pfizer Covid-19 Vaccine 12+ Bivalent 12/20/2022 Tdap 09/13/2021 Social History Tobacco Use Types Packs/Day Years Used Date Smoking Tobacco: Never Assessed Sex and Gender Information Value Date Recorded Sex Assigned at Male 08/06/2022 10:20 AM EDT Legal Sex Male 10:20 AM EDT Gender Identity Male 08/06/2022 10:20 AM EDT Sexual Orientation Straight 08/06/2022 10 :20 AM EDT Plan of Treatment Health Maintenance Due Date Last Done Comments CT Colonography 1964 Colonoscopy 1964 Colorectal Cancer Screening 1964 Depression Screening 1964 FIT DNA/Cologuard 1964 FIT 1964 FOBT 1964 HIV Screening 1964 Lipid Panel 1964 SDOH Screening 1964 Sigmoidoscopy 1964 Alcohol/Substance Use Screening 1976 Tobacco Screening 1976 Hepatitis C Screening 1982 Pneumococcal Vaccine: 50+ Years (1 of 1 - PCV) 2014 Zoster Vaccines (1 of 2) 2014 Hepatitis B Vaccines (2 of 3 - 19+ 3-dose series) 05/31/2022 05/03/2022 COVID-19 Vaccine (4 - 2023-2 5 season) 2024 12/20/2022, 01/10/2022, 01/13/2021 Influenza Vaccine (#1) 2024 DTaP/Tdap/Td Vaccines (3 - T d or Tdap) 09/22/2034 09/22/2024, 09/13/2021 RSV Patients and Patients Aged 60 years or older (1 - 1-dose 75+ series) 2039 HIB Vaccines Aged Out No longer eligi ble based on patient's age to complete this topic HPV Vaccines Aged Out No longer eligi ble based on patient's age to complete this topic Hepatitis A Vaccines Aged Out No long er eligible based on patient's age to complete this topic IPV Vaccines Aged Out No longer eligi ble based on patient's age to complete this topic Meningococcal Vaccine Aged Out No megha rafal eligible based on patient's age to complete this topic Pneumococcal Vaccine: Pediatrics (0 to 5 Years) and At-Risk Patients (6 to 49) Years) Aged Out No longer eligible b ased on patient's age to complete this topic RSV under 20 months Aged Out No longe r eligible based on patient's age to complete this topic Rotavirus Vaccines Aged Out No longer eligible based on patient's age to complete this topic Insurance ACO
== END 2024-11-27 11:01 | disposition home or self-care (01) ==
PROVIDERS: PCP Internal Medicine; Visit Provider Nurse Practitioner Family
DX: S22.32XA Fracture of one rib, left side, initial encounter for closed fracture (principal); R00.1 Bradycardia, unspecified; J10.1 Influenza due to other identified influenza virus with other respiratory manifestations

== ENCOUNTER → 2024-11-27 09:46 | Outpatient (BNVA) | payer OTHER, SELFPAY | PROVIDERS: PCP Internal Medicine; Visit Provider Nurse Practitioner Family | DX: S22.32XD Fracture of one rib, left side, subsequent encounter for fracture with routine healing (principal); R00.1 Bradycardia, unspecified; J10.1 Influenza due to other identified influenza virus with other respiratory manifestations | CPT/HCPCS: 99212 ==

== ENCOUNTER 2025-06-08 07:16 | Outpatient (REF) | payer OTHER, SELFPAY ==
--- NOTE | ~2025-06-08 | XR_ITS ---
EXAMINATION: XR CHEST CLINICAL INFORMATION: J90 - Pleural effusion, not elsewhere classified COMPARISON: 11/10/2024. TECHNIQUE: 2 views of the chest were obtained. FINDINGS: The cardiac, hilar, and mediastinal contours are normal. The lungs are currently clear bilaterally. There is no pneumothorax or pleural effusion. There is no focal osseous or soft tissue abnormality. XR/XR chest 2V IMPRESSION: No active pulmonary disease. There is no pleural effusion. Electronically signed by: Bernardo White MD 06/08/2025 09:41 AM EDT
[2025-06-08 09:31] LABS: Alanine Aminotransferase 17 U/L (0-40); Albumin Level 4.3 g/dL (3.5-5.0); Alkaline Phosphatase 112 U/L (39-117); Anion Gap 8 (12-20); Aspartate Amino Transferase 31 U/L (5-37); Blood Urea Nitrogen 13 mg/dL (9-16); Calcium 9.1 mg/dL (8.4-10.2); Carbon Dioxide 32 mmol/L (22-29); Chloride 107 mmol/L (96-108); Cholesterol 158 mg/dL (<200); Estimated Glomerular Filt Rate > 60; HDL Cholesterol 37 mg/dL (>40); Potassium 4.8 mmol/L (3.3-5.1); Sodium 142 mmol/L (135-145); Total Protein 7.2 g/dL (6.5-8.0); Triglycerides 109 mg/dL (<150)
== END 2025-06-08 07:17 | disposition home or self-care (01) ==
LOC: HO.LAB 07:16
PROVIDERS: PCP Internal Medicine; Visit Provider Internal Medicine
DX: Z00.00 Encounter for general adult medical examination without abnormal findings (principal); J90 Pleural effusion, not elsewhere classified; R39.198 Other difficulties with micturition
CPT/HCPCS: 36415; 71046; 80053; 80061; 96127; 99212; 99396

== ENCOUNTER 2025-06-08 07:16 | Outpatient (AMB) | payer OTHER, SELFPAY ==
--- OUTSIDE RECORDS SUMMARY | 2025-06-08 07:19 | XMS_ITS | Clinical Summary ---
Author Organization [employer] Address [address] [place] [address] Care Team Providers Care Opener Name Role Phone Unavailable Primary Care Provider Unavailabl e Immunizations Immunization Administration Dates Next Due Hep B, adult [...] Panel 1964 SDOH Screening 1964 Sigmoidoscopy 1964 Disability Screening 1964 Alcohol/Substance Use Screening 1976 Tobacco Screening 1976 Hepatitis C Screening 1982 Pneumococcal Vaccine: 50+ Years (1 of 1 - PCV) 2014 Zoster Vaccines (1 of 2) 2014 Hepatitis B Vaccines (2 of 3 - 19+ 3-dose series) 05/31/2022 05/03/2022 COVID-19 Vaccine (4 - 2023-2 5 season) 2024 12/20/2022, 01/10/2022, 01/13/2021 Influenza Vaccine (#1) 2025 DTaP/Tdap/Td Vaccines (3 - T d or [...] patient's age to complete this topic Meningococcal B Vaccine Aged Out No l onger eligible based on patient's age to complete this topic Meningococcal Vaccine Aged Out No megha rafal eligible based on patient's age to complete this topic RSV under 20 months Aged Out No longe r eligible based on patient's age to complete this topic Rotavirus Vaccines Aged Out No longer eligible based on patient's age to complete this topic Insurance [facility]
[2025-06-08 07:36] VITALS: BP 134/82; PULSE 83; O2SAT 97; BMI 30.5
--- NOTE | 2025-06-08 07:36 | A.OFFPC_ITS ---
Vital Signs 06/08/25 07:36 Height 5 ft 11 in Weight 219 lb BMI 30.5 BP 134/82 Blood Pressure Location Lt brachial Position Sitting Pulse 83 Pulse Source Pulse Oximeter Pulse Oximetry (%) 97 Oxygen Delivery Method Room Air Intake Visit Reasons: PE Laydown Machine Operator Required: No Accompanied by: Self / Same As Patient Allergies No Known Allergies Allergy (Verified 06/08/25 07:47) Medication List - Last Reconciled 06/08/25 by Sydney Randall MD No Known Home Meds Tobacco use date assessed: 11/27/24 Dental Screening Dental Screen Date: 11/27/24 HPI HPI Comments History of Present Illness Details The patient is a 59-year-old male presenting with an annual physical examination. He has a history of cataract surgery, which did not result in satisfactory outcomes, as he experiences difficulty being in sunlight without sunglasses. The patient reports a history of pleural effusion noted in November, for which a follow-up imaging study is planned. He experiences urinary hesitancy, which may be related to prostatic issues, and a referral to a urologist was suggested. In terms of preventative care, the patient received a Tdap vaccination last year, and the next dose is due in 2029. The patient has a family history of diabetes and hypertension on the maternal side, while the paternal side had no significant medical issues. He quit smoking and alcohol consumption in 2020 and reports no current depressive or anxious symptoms. - Tdap vaccination completed last year, next due in 2033 - Follow-up imaging for pleural effusion planned - Referral to urology for prostatic symp toms COUNT INCLUDES [facility] Medical History (Updated 06/08/25 @ 07:58 by Sydney Randall MD) Immunization due Left foot pain Physical exam Anxiety Insomnia Hypertension H/O ETOH abuse Surgical History History of cataract surgery H/O hand surgery Family History Mother Diabetes Hypertension Father No problems noted. Son Stroke Social History Housing: Apartment Alcohol intake: former Patient Tobacco Use Status: Former Tobacco user Tobacco use type: Cigarette e-Cigarette/Vaping Use: Never Used Second Hand Smoke Exposure: No service: No Current occupational status: employed Current occupational exposures/hazards: No Cognitive needs: No Hearing needs: No Vision needs: Yes Questionnaire PHQ-9 Over the last 2 weeks, how often have you been bothered by any of the following problems? 1. Little interest or pleasure in doing things: not at all 2. Feeling down, depressed, or hopeless: not at all 3. Trouble falling or staying asleep, or sleeping too much: not at all 4. Feeling tired or having little energy: not at all 5. Poor appetite or overeating: several days 6. Feeling bad about yourself - or that you are a failure or have let yourself or your family down: not at all 7. Trouble concentrating on things, such as reading the newspaper or watching television: not at all 8. Moving or speaking so slowly that other people could have noticed. Or the opposite - being so fidgety or restless that you have been moving around a lot more than usual: not at all 9. Thoughts that you would be better off or of hurting yourself in some way: not at all Total score: 1 Depression Screening Interpretation: Negative Depression Screening Done: Yes 59677 - PHQ-9 Billing: Yes Source: Developed by Drs. Cristofer Wetzel, Alicja Irby, Viet Lee and colleagues, with an educational reed from [employer]. Thrive Questionnaire Date Thrive assessed: 06/08/25 I am a: Patient What is your living situation today?: I have a steady place to live Within the past 12 months, did the food you bought not last and you didn't have the money to get more?: Never true Within the past 12 months, did you worry whether your food would run out before you got money to buy more?: Sometimes True Do you have trouble paying for medicines?: No Do you have trouble getting transportation to medical appointments?: No Do you have trouble paying your heating and electricity bill?: Yes Do you have trouble taking care of your child, family member or friend?: No Do you have trouble with day-to-day activities such as bathing, preparing meals, shopping, managing finances, etc.?: No Are you currently unemployed and looking for a job?: No Are you interested in more education?: No Please select the resources that you would like help with: Housing/Long-Term Currently or been in a relationship where the following occur: No concerns repo rted THRIVE Score: 2 AUDIT C Alcohol Use Questionnaire (AUDIT-C) 1. How often do you have a drink containing alcohol?: Never 3. How often do you have six or more drinks on one occasion?: Never Total Score: 0 Score Reviewed/Action Taken: No IRMA-7 AMB Questionnaire IRMA-7 Date IRMA - 7 assessed: 11/27/24 Feeling nervous, anxious, or on edge: 0 = Not at all Not being able to stop or control worryin = Not at all Worrying too much about different things: 0 = Not at all Trouble relaxin = Not at all Being so restless that it is hard to sit still: 0 = Not at all Becoming easily annoyed or irritable: 0 = Not at all Feeling afraid as if something awful might happen: 0 = Not at all Total IRMA-7 score (0-4 normal; 5-9 mild; 10-14 moderate; 15-21 severe): 0 Source: Developed by Drs. Cristofer Wetzel, Alicja Irby, Viet Lee and colleagues, with an educational reed from [employer]. IRMA-7 Assessment Billing IRMA-7 Assessment Tool: IRMA-7 Assessment 01880 Review of Systems Const All systems reviewed & are unremarkable except as noted in HPI and below Card Denies chest pain at rest, Denies chest pain with activity, Denies edema, Denies irregular heart rhythm, Denies claudication, Denies dyspnea, Denies dyspnea on exertion, Denies orthopnea, Denies paroxysmal nocturnal dyspnea and Denies slow heart rate Resp Denies cough, Denies dyspnea and Denies dyspnea on exertion GI Denies abdominal pain, Denies change in bowel habits, Denies excessive flatus, Denies nausea and Denies vomiting Physical exam (Primary Care) Vital Signs: Last Vital Signs Pulse 83 06/08/25 07:36 BP 134/82 06/08/25 07:36 Pulse Ox 97 06/08/25 07:36 Oxygen Delivery Method Room Air 06/08/25 07:36 BMI result Body Mass Index 30.5 Tobacco/Smoking Status: Tobacco use Status Tobacco use date assessed 11/27/24 06/08/25 07:37 Patient Tobacco Use Status Former Tobacco user 06/08/25 07:37 Tobacco use type Cigarette 06/08/25 07:37 e-Cigarette/Vaping Use Never Used 06/08/25 07:37 PHQ-9: PHQ-9 Score PHQ-9: Total score 1 06/08/25 07:43 Depression Screening Interpretation: Negative Thrive Assessment: Date of Thrive Assessment Date Thrive assessed 06/08/25 06/08/25 07:43 Currently or been in a relationship where the following occur: No concerns reported HENMT Head: Yes normal to inspection, Yes normocephalic and Yes atraumatic Ears: external ears normal Eyes General: appearance normal, both eyes and all related structures Eyelids: Yes eyelids normal Conjunctivae: conjunctivae normal Neck Neck: Yes normal visual inspection and Yes supple Resp Effort & Inspection: normal respiratory effort Auscultation: clear to auscultation bilaterally Cardio Jugular venous distension: no JVD Rate: regular rate Rhythm: regular rhythm Heart sounds: S1 normal heart sound present and S2 normal heart sound present GI Inspection: Yes normal to inspection Palpation (GI): Soft to palpation and nontender Auscultation: normal bowel sounds Skin General skin exam: no rashes or lesions noted Neuro General: no focal motor deficits Extrem General: Yes full ROM Psych Appearance: grossly normal Coding Level of Care Code Est Pt Level 3 (78719) Est Pt Prev Care 40-64y(92843) Diagnoses Physical exam Z00.00 Pleural effusion J90 Difficulty initiating urinary stream R39.198 Additional Codes IRMA-7 Assessment Billing - IRMA-7 Assessment Tool: IRMA-7 Assessment 78276 ([id number]) PHQ-9 - 61302 - PHQ-9 Billing: Yes ([id number]) Time Spent (min) 33 Assessment & Plan Assessment & Plan (1) Physical exam: Code(s): Z00.00 - Encounter for general adult medical examination without abnormal findings Category: Medical (2) Pleural effusion: Code(s): J90 - Pleural effusion, not elsewhere classified Category: Medical (3) Difficulty initiating urinary stream: Code(s): R39.198 - Other difficulties with micturition Category: Medical Plan Plan Patient was informed and verbally consented to the use of an ambient scribe for clinic note documentation during this visit. 1. Encounter for general adult medical examination without abnormal findings Z00.00 Repeat in a year. 2. Personal history of other diseases of the respiratory system Z87.09 The patient had a pleural effusion noted in November. A follow-up imaging study is planned to reassess the condition. 3. Benign prostatic hyperplasia with lower urinary tract symptoms N40.1 The patient reports urinary hesitancy, which may be related to prostatic issues. A referral to a urologist was suggested for further evaluation and management. Orders: Orders Comprehensive [place]. Panel Fast Today Z00.00 - Encounter for general adult medical examination without abnormal findings XR chest 2V Today J90 - Pleural effusion, not elsewhere classified Lipid Panel Today Z00.00 - Encounter for general adult medical examination without abnormal findings Referrals Open Access Screening Colonoscopy Referral Z12.12 - Encounter for screening for malignant neoplasm of rectum Urology Referral R39.198 - Other difficulties with micturition
== END 2025-06-08 07:57 | disposition home or self-care (01) ==
LOC: HO.HMCH 07:16
PROVIDERS: PCP Internal Medicine; Visit Provider Internal Medicine
DX: Z00.00 Encounter for general adult medical examination without abnormal findings (principal); J90 Pleural effusion, not elsewhere classified; R39.198 Other difficulties with micturition

== ENCOUNTER → 2025-06-08 08:31 | Outpatient (BNV) | payer OTHER, SELFPAY | PROVIDERS: PCP Internal Medicine; Visit Provider Radiology Diagnostic Radiology | DX: J90 Pleural effusion, not elsewhere classified (principal) | CPT/HCPCS: 71046 ==

== ENCOUNTER 2025-08-30 07:39 | Outpatient (AMB) | payer OTHER, SELFPAY ==
--- OUTSIDE RECORDS SUMMARY | 2025-08-30 07:42 | XMS_ITS | Clinical Summary ---
Author Organization [employer] Address [address] [place] [address] Care Team Providers Care Associate Professor Of Physics Name Role Phone Unavailable Primary Care Provider [...] series) 05/31/2022 05/03/2022 COVID-19 Vaccine (4 - 2024-2 6 season) 2025 12/20/2022, 01/10/2022, 01/13/2021 Influenza Vaccine (#1) 2025 [...] patient's age to complete this topic Insurance [facility]
--- NOTE | 2025-08-30 07:57 | A.OFFVIS_ITS ---
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 Atwood. He has a past medical history of anxiety, insomnia, hypertension, and alcohol abuse. In discussion with the patient today he reports having recently followed up with his PCP in discussing ongoing issues with urinary hesitancy and straining with urination at which time recommendations were made for urology referral for further assessment evaluation. He reports symptoms have been present for over a year. In office urinalysis results reviewed with the patient today. PVR 177 mL. He also reports noting episodes of urinary urgency and frequency. He otherwise denies incontinence, nocturia, hematuria, dysuria, foul smelling urine, flank pain, fever, and or chills. We did discussed potential causes of lower urinary tract symptoms he is experiencing as well as incomplete bladder emptying. We did discussed further treatment options and risks and benefits of these treatment options. RINA was offered however deferred. We discussed obtaining PSA and retroperitoneal ultrasound for further assessment evaluation. We also discussed bladder triggers and irritants. All questions were answered. He otherwise offers no other issues or concerns at this time. [facility] Medical History Immunization due Left foot pain Physical exam Anxiety Insomnia Hypertension H/O ETOH abuse Surgical History History of cataract surgery H/O hand surgery Family History Mother Diabetes Hypertension Father No problems noted. Son Stroke Social History Housing: Apartment Alcohol intake: former Patient Tobacco Use Status: Former Tobacco user Tobacco use type: Cigarette e-Cigarette/Vaping Use: Never Used Second Hand Smoke Exposure: No service: No Current occupational status: employed Current occupational exposures/hazards: No Cognitive needs: No Hearing needs: No Vision needs: Yes Review of Systems Const All systems reviewed & are unremarkable except as noted in HPI and below Physical Exam Const General: cooperative, healthy appearing, comfortable, no acute distress, well developed, alert and awake Orientation/consciousness: patient oriented x3 Limitations: no limitations HEENT Head: Yes normal to inspection, Yes normocephalic and Yes atraumatic Ears: hearing grossly normal bilaterally Eyes General: appearance normal, both eyes and all related structures Neck Neck: Yes normal visual inspection and Yes trachea midline Chest Chest palpation & inspection: normal inspection of the chest Resp Effort & Inspection: normal respiratory effort and able to speak in complete sentences Cardio Rate: regular rate GI Inspection: Yes normal to inspection General: Yes no CVA tenderness Back/Spine/Pelvis Back: no CVA tenderness Skin General skin exam: no rashes or lesions noted Neuro General: patient oriented x3 Extrem General: Yes normal to inspection Psych Appearance: grossly normal and well kempt Mental Status: mental status grossly normal Speech and movement: Normal speech and movement present and Clear speech present Affect: normal affect Attitude: cooperative Thought process: Normal thought process present Thought content: Normal thought content present Insight: Fair insight present (Psych) Judgement: Fair judgement present (Psych) Office Procedures Post Void Residual Post Residual Void Post Void Residual (PVR): 177 [id number] Void Residual by ultrasound Results AMB Urinalysis, Automated UA Leukoctes 0 Zoë/uL Last Edit by Ro Sol [facility] on 08/30/25 07:59 UA Nitrite Negative Last Edit by Ro Sol [facility] on 08/30/25 07:59 UA Urobilinogen 0.2 mg/dL Last Edit by Ro Sol [facility] on 08/30/25 07:59 UA Protein 0 mg/dL Last Edit by Ro Sol [facility] on 08/30/25 07:59 UA pH 5.5 Last Edit by Ro Sol [facility] on 08/30/25 07:59 UA Blood 0 Natan/uL Last Edit by Ro Sol [facility] on 08/30/25 07:59 UA Specific [place] 1.020 Last Edit by Ro Sol [facility] on 08/30/25 07:5 9 UA Ketone Negative Last Edit by MURALI Levy on 08/30/25 07:59 UA Bilirubin 0 mg/dL Last Edit by MURALI Levy on 08/30/25 07:59 UA Glucose 0 mg/dL Last Edit by MURALI Levy on 08/30/25 07:59 Results Reviewed Results Reviewed: Laboratory Last Values Urine pH (Auto) 5.5 08/30/25 07:59 Specific [place] (Auto) 1.020 08/30/25 07:59 Urine Protein (Auto) 0 mg/dL 08/30/25 07:59 Glucose (UA)(Auto) 0 mg/dL 08/30/25 07:59 Urine Ketones (Auto) Negative 08/30/25 07:59 Urine Blood (Auto) 0 Natan/uL 08/30/25 07:59 Urine Nitrite (Auto) Negative 08/30/25 07:59 Urine Bilirubin (Auto) 0 mg/dL 08/30/25 07:59 Urine Urobilinogen (Auto) 0.2 mg/dL 08/30/25 07:59 Leukocyte Esterase (Auto) 0 Zoë/uL 08/30/25 07:59 Assessment & Plan Assessment & Plan (1) History of urinary hesitancy: Code(s): Z87.898 - Personal history of other specified conditions Category: Medical (2) Urinary straining: Code(s): R39.16 - Straining to void Category: Medical (3) Incomplete bladder emptying: Code(s): R33.9 - Retention of urine, unspecified Category: Medical Plan In office urinalysis results reviewed with the patient today; as noted above. PVR 177 mL. We did discuss potential causes of lower urinary tract symptoms patient is experiencing as well as further treatment options and risks and benefits of these treatment options. RINA was offered however deferred. Will obtain retroperitoneal ultrasound for further assessment evaluation. Will obtain PSA for further assessment evaluation. We discussed attempting to sit when voiding to relax pelvis to assist with bladder emptying. We also discussed bladder triggers and irritants. Follow-up in 3 months with imaging, labs, and PVR; or sooner with any issues, concerns, and or questions. Orders: Orders Prostate Specific Antigen Today N40.0 - Benign prostatic hyperplasia without lower urinary tract symptoms US retroperitoneal comp Today R33.9 - Retention of urine, unspecified, R39.16 - Straining to void, Z87.898 - Personal history of other specified conditions Patient Instructions: The patient had an opportunity to ask questions regarding the treatment plan. All questions were answered. Physical exam, labs, and imaging were discussed and reviewed in detail. As well as risks, benefits, and discussion of treatment choices. No major barriers to understanding were identified. The patient expressed understanding and agreement with the above treatment plan. The patient was made aware they should contact our office by phone for worsening of their current condition, the appearance of new symptoms, or with any questions or concerns. Compliance is encouraged with any medications and follow up testing that is ordered. It is a privilege to be allowed the opportunity to participate in? your urological care.? Again, if you have any questions or concerns If you have any questions or concerns please do not hesitate to contact me. The office is [phone]. This note is constructed using voice recognition software. While every effort has been made to ensure accuracy marking machine tender errors may have been included. Yours sincerely, MELISSA Terry- Coding Level of Care Code New Pt Level 3 (27004) Diagnoses History of urinary hesitancy Z87.898 Urinary straining R39.16 Incomplete bladder emptying R33.9 CPT Codes Post Residual Void - PVR CPT Code: 55645-Lmve Void Residual by ultrasound ([id number])
== END 2025-08-30 08:26 | disposition home or self-care (01) ==
LOC: HO.HUSH 07:40
PROVIDERS: PCP Internal Medicine; Visit Provider Nurse Practitioner Family
DX: Z87.898 Personal history of other specified conditions (principal); R39.16 Straining to void; R33.9 Retention of urine, unspecified
CPT/HCPCS: 99203

== ENCOUNTER → 2025-08-30 07:39 | Outpatient (BNVA) | payer OTHER, SELFPAY | PROVIDERS: PCP Internal Medicine; Visit Provider Nurse Practitioner Family | DX: R33.9 Retention of urine, unspecified (principal); R39.16 Straining to void; Z87.898 Personal history of other specified conditions | CPT/HCPCS: 51798; 99202 ==

== ENCOUNTER 2025-08-31 07:10 | Outpatient (REF) | payer OTHER, SELFPAY ==
--- OUTSIDE RECORDS SUMMARY | 2025-08-31 07:12 | XMS_ITS | Clinical Summary ---
Author Organization [employer] Address [address] [place] [address] Care Team Providers Care Zone Maintenance Technician Name Role Phone Unavailable Primary Care Provider [...] patient's age to complete this topic Insurance [facility]
[2025-08-31 10:58] LABS: Prostate Specific Antigen 0.30 ng/mL (<0.05-4.0)
== END 2025-08-31 07:11 | disposition home or self-care (01) ==
LOC: HO.10HDL 07:10
PROVIDERS: Visit Provider Nurse Practitioner Family
DX: N40.0 Benign prostatic hyperplasia without lower urinary tract symptoms (principal)
CPT/HCPCS: 36415; 84153

== ENCOUNTER 2025-09-09 07:44 | Outpatient (AMB) | payer OTHER, SELFPAY ==
--- OUTSIDE RECORDS SUMMARY | 2025-09-09 07:49 | XMS_ITS | Clinical Summary ---
Author Organization [employer] Address [address] [place] [address] Care Team Providers Care Operating Room Aide Name Role Phone Unavailable Primary Care Provider [...] patient's age to complete this topic Insurance [facility]
--- NOTE | 2025-09-09 08:01 | A.OFFVIS_ITS ---
Vital Signs 09/09/25 08:02 Height 5 ft 11 in Weight 213 lb BMI 29.7 BP 176/110 H Blood Pressure Location Lt brachial Position Sitting Pulse 58 Oxygen Delivery Method Room Air Intake Visit Reasons: COLO SCREENING Intake Note: Patient new consult for 1st pre Colonoscopy screening. Patient cc: urine continence, irregular BM, heartburn on and off. After School Driver Required: No Accompanied by: Self / Same As Patient Allergies No Known Allergies Allergy (Verified 09/09/25 08:01) HPI HPI COLO SCREENING: Details: Patient is a 60-year-old male with PMH of anxiety, insomnia, hypertension. Brady presents for pre colonoscopy screening. He reports approximately one year of progressive constipation characterized by difficulty passing stool and a persistent sensation of incomplete evacuation. He reports needing to strain both with defecation and urination, describing never fully finishing either action. There is occasional central abdominal discomfort associated with episodes of constipation; pain seems to be provoked by the effort of passing stool rather than spontaneously or continuously. No rectal bleeding, nausea, vomiting, or change in appetite. History includes past frequent heartburn, now improved since exclusively cooking at home; no current regurgitation or dysphagia. Weight has fluctuated in the past due to changes in diet and activity but is currently stable. No known daily medication use; past attempts at using bisacodyl (incorrect dose) without relief. He recently recovered from a viral upper respiratory illness with cough. Notable comorbidity is bradycardia (HR in 50s), previously monitored in 2021, but no clear cardiac diagnosis or ongoing follow-up. Patient denies: fever/chills, n/v, appetite changes, regurgitation,dysphasia, unintentional wt loss or melena/hematochezia. Social hx: -Daily alcohol consumption until March/April 2021, completed rehabilitation, abstinent since. -smokes marijuana daily, denies other recreational drug use -former smoker, cessation 2020 - family hx as below -denies personal hx of CA -tolerated anesthesia in the past without difficulty. [facility] Medical History (Updated 09/09/25 @ 08:52 by Shellie Champion CNP) Constipation Colon cancer screening Immunization due Left foot pain Physical exam Anxiety Insomnia Hypertension H/O ETOH abuse Surgical History History of cataract surgery H/O hand surgery Family History Mother Diabetes Hypertension Father No problems noted. Son Stroke Social History Housing: Apartment Alcohol intake: former Patient Tobacco Use Status: Former Tobacco user Tobacco use type: Cigarette e-Cigarette/Vaping Use: Never Used Second Hand Smoke Exposure: No service: No Current occupational status: employed Current occupational exposures/hazards: No Cognitive needs: No Hearing needs: No Vision needs: Yes Review of Systems Const Reports as per HPI ENT Reports as per HPI Card Reports as per HPI Resp Reports as per HPI GI Reports as per HPI Reports as per HPI Physical Exam Vital Signs: Oxygen Delivery Method Room Air 09/09/25 08:02 BMI result Body Mass Index 29.7 Const General: healthy appearing, no acute distress and well developed Nutritional Appearance: average body habitus Orientation/consciousness: patient oriented x3 HEENT Head: Yes normal to inspection, Yes normocephalic and Yes atraumatic Face and sinus: Yes normal facial exam Eyes General: appearance normal, both eyes and all related structures Neck Neck: Yes normal visual inspection Resp Effort & Inspection: normal respiratory effort, able to speak in complete sentences, no tracheal deviation and symmetric chest movement Auscultation: clear to auscultation bilaterally and rhonchi (cleared with forced cough) Cardio Jugular venous distension: no JVD Rate: regular rate Rhythm: regular rhythm Heart sounds: S1 normal heart sound present, S2 normal heart sound present, no gallops and no murmurs GI Inspection: Yes normal to inspection, No distended and Yes obesity Palpation (GI): Soft to palpation, not firm, nontender and No hepatosplenomegaly present Auscultation: normal bowel sounds Neuro General: patient oriented x3 Gait exam (Neuro): Normal gait present Psych Appearance: grossly normal Mental Status: mental status grossly normal Speech and movement: Normal speech and movement present Affect: normal affect Attitude: cooperative Thought process: Normal thought process present Thought content: Normal thought content present Insight: Good insight present (Psych) Judgement: Good judgement present (Psych) Assessment & Plan Assessment & Plan (1) Colon cancer screening: Code(s): Z12.11 - Encounter for screening for malignant neoplasm of colon Category: Medical Plan: Due for index screening colonoscopy. Plan as below (2) Constipation: Code(s): K59.00 - Constipation, unspecified Category: Medical Qualifiers: Constipation type: unspecified constipation type Qualified Code(s): K59.00 - Constipation, unspecified Plan: One year history of straining, incomplete evacuation, insufficient response to OTC stimulant laxatives, associated with dietary history and reduced water intake. Additional Testing: - Routine colonoscopy scheduled for colorectal cancer screening due to age and chronic constipation. - Previous labs (CBC, renal/hepatic panel) within normal limits; no current indications for repeat at this time. Medication Management: - Recommend dietary/lifestyle adjustment first; Miralax and bisacodyl prescribed for colonoscopy prep. - Future consideration for stool softener or magnesium supplement if diet/hydration fail. Lifestyle Recommendations: - Increase water intake. - Increase dietary fiber (fruits, vegetables, beans). - Provided high-fiber food handout. Follow-Up: - Post-colonoscopy GI review; earlier if constipation worsens or new symptoms arise. (3) Difficulty initiating urinary stream: Code(s): R39.198 - Other difficulties with micturition Category: Medical Plan: Persistent sensation of incomplete bladder emptying, straining; possible prostatic component given supplement use. Additional Testing: - Recommend Urology referral if urinary symptoms persist post-colonoscopy and bowel regimen adjustment. Medication Management: - None initiated; advised against self-medication and inappropriate dosing. Lifestyle Recommendations: - Monitor urinary symptoms, report new onset pain, hematuria, or infection signs. Follow-Up: - GI follow-up post-procedure, PCP reassessment as needed for LUTS. (4) Bradycardia: Code(s): R00.1 - Bradycardia, unspecified Category: Medical Plan: History of low heart rate, previous reassuring Holter monitor. Additional Testing: - No clearance needed for routine colonoscopy per current guideline and presentation. Medication Management: - None required. Lifestyle Recommendations: - Encourage cardiology follow-up. Follow-Up: - PCP/cardiology as appropriate. Plan Follow-up after endoscopy or sooner as needed Time: I spent a total of 45 minutes on the date of encounter which includes: Preparing to see the patient (reviewed previous documentation, test results and medical history) Performing a medically appropriate exam and/or evaluation Ordering medications, tests, and procedures Documenting clinical information in the health record Orders: Referrals GI Procedure Notification Z12.11 - Encounter for screening for malignant neoplasm of colon Medications: New polyethylene glycol 3350 (Miralax) per colonoscopy prep instructions 238 grams PO ONCE 238 grams 0RF bisacodyl take four tablets once day of colonoscopy prep 20 mg (4 x 5 mg) PO ONCE 4 tabs 0RF bisacodyl Take two tablets at bedtime, starting five nights before colonoscopy 10 mg (2 x 5 mg) PO BEDTIME 10 tabs 0RF Coding Level of Care Code New Pt New Pt Level 4 (00196) Patient Type New Diagnoses Colon cancer screening Z12.11 Constipation, unspecified constipation type K59.00 Constipation type: unspecified constipation type Difficulty initiating urinary stream R39.198 Bradycardia R00.1
[2025-09-09 08:02] VITALS: BP 176/110; PULSE 58; BMI 29.7
== END 2025-09-09 08:43 | disposition home or self-care (01) ==
LOC: HO.HGI 07:44
PROVIDERS: PCP Internal Medicine; Visit Provider Nurse Practitioner Family
DX: Z01.818 Encounter for other preprocedural examination (principal); Z12.11 Encounter for screening for malignant neoplasm of colon; K59.00 Constipation, unspecified; R39.198 Other difficulties with micturition; R00.1 Bradycardia, unspecified
CPT/HCPCS: 99204

== ENCOUNTER → 2025-09-09 07:44 | Outpatient (BNVA) | payer OTHER, SELFPAY | PROVIDERS: PCP Internal Medicine; Visit Provider Nurse Practitioner Family | DX: Z12.11 Encounter for screening for malignant neoplasm of colon (principal); K59.00 Constipation, unspecified; R39.198 Other difficulties with micturition; R00.1 Bradycardia, unspecified | CPT/HCPCS: 99202 ==

== ENCOUNTER 2025-09-27 03:49 | Emergency (ER) | payer OTHER, SELFPAY ==
[2025-09-27 04:09] VITALS: BP 176/94; RESP 20; TEMP 36.4; O2SAT 95; BMI 29.3
--- NOTE | 2025-09-27 04:13 | ED.EXTPRO ---
HPI - Extremity Problem General Chief complaint: Extremity Problem Stated complaint: Leg pain Time Seen by Provider: 09/27/25 04:13 Source: patient Mode of arrival: ambulatory Limitations: no limitations History of Present Illness ED Provider: Bernardo AGUIRRE HPI Narrative: The patient is a 60-year-old male who presents with acute onset right lower back pain that began approximately three days ago. The pain originates in the right lumbar region and radiates through the buttocks and down the posterior right leg. He reports marked exacerbation when leaning forward or when seated on the toilet, and with passive or active elevation of the right leg while supine. No left-sided pain is noted. He denies recent falls, trauma, or motor-vehicle accidents. He has not taken any home medications for this episode. He denies fever, bowel/bladder incontinence, saddle paresthesias, lower extremity weakness, or urinary retention. Related Data Previous Rx's ?Medication ?Instructions ?Recorded bisacodyl 5 mg tablet,delayed 10 mg (2 x 5 mg) PO BEDTIME #10 09/09/25 release tabs bisacodyl 5 mg tablet,delayed 20 mg (4 x 5 mg) PO ONCE #4 tabs 09/09/25 release polyethylene glycol 3350 17 238 g PO ONCE #238 grams 09/09/25 gram/dose oral powder (Miralax) acetaminophen 500 mg capsule 1,000 mg (2 x 500 mg) PO .q8 PRN 09/27/25 fever or pain #30 caps cyclobenzaprine 10 mg tablet 10 mg PO TID PRN muscle spasm #14 09/27/25 tabs ibuprofen 600 mg tablet 600 mg PO Q8H PRN fever or pain 09/27/25 #30 tabs Allergies Allergy/AdvReac Type Severity Reaction Status Date / Time No Known Allergies Allergy Verified 09/27/25 04:11 Review of Systems Review of Systems: Yes all other systems are reviewed and are negative [facility] Past Medical History Medical History (Updated 09/27/25 @ 04:43 by Bernardo Friedman PA-C) Constipation Colon cancer screening Immunization due Left foot pain Physical exam Anxiety Insomnia Hypertension H/O ETOH abuse Surgical History History of cataract surgery H/O hand surgery Family History Family History Mother Diabetes Hypertension Father No problems noted. Son Stroke Social History Social History Housing: Apartment Alcohol intake: former Patient Tobacco Use Status: Former Tobacco user Tobacco use type: Cigarette e-Cigarette/Vaping Use: Never Used Second Hand Smoke Exposure: No Advance Directives: No Advance Directives Information Provided: No service: No Current occupational status: employed Current occupational exposures/hazards: No Cognitive needs: No Hearing needs: No Vision needs: Yes Physical Exam Vital Signs: Vital Signs: Last Vital Signs Temp 97.5 F 09/27/25 04:09 Resp 20 09/27/25 04:09 BP 176/94 H 09/27/25 04:09 Pulse Ox 95 09/27/25 04:09 O2 Del Method Room Air 09/27/25 04:09 BMI result Body Mass Index 29.3 CONSTITUTIONAL: The patient appears non-toxic, well nourished and in no acute distress. Vital signs as documented. HEAD: Atraumatic, normocephalic. EYES: EOMs grossly intact, pupils equal, conjunctiva clear, no exudate. ENT: Nares patent, no discharge. Airway patent, no audible stridor, visible mucosa is pink and moist without noted lesions. NECK: trachea is midline, no obvious masses or gross abnormalities. CHEST: Symmetric movement, normal appearance. LUNGS: Non-labored work of breathing. CARDIAC: No evidence of hypoperfusion. ABDOMEN: Nondistended, no obvious injury. : Deferred. BACK: No midline spinous process tenderness, step-off, or crepitus. There is mild to moderate tenderness of the right lumbar paraspinal muscles, SI joint and superior buttock. EXTREMITIES: Positive straight leg raise on the right, distal CSM intact, 2+ DP/PT pulses. Moves all other extremities spontaneously without reported pain. No obvious injury or deformity noted. Patient ambulates with a steady gait. NEURO: Alert and oriented x3, CN II-XII appear grossly intact. Cerebellar Functioning grossly intact. Speech clear and appropriate. SKIN: Warm, dry, color appropriate. No rashes or lesions noted. Medical Decision Making Medical Decision Making MDM Narrative: 4:45 AM 09/27/2025 (Neena AGUIRRE): The patient is a 60-year-old male who presents with acute onset right lower back pain that began approximately three days ago. The pain originates in the right lumbar region and radiates through the buttocks and down the posterior right leg. He reports marked exacerbation when leaning forward or when seated on the toilet, and with passive or active elevation of the right leg while supine. No left-sided pain is noted. He denies recent falls, trauma, or motor-vehicle accidents. He has not taken any home medications for this episode. He denies fever, bowel/bladder incontinence, saddle paresthesias, lower extremity weakness, or urinary retention. On exam patient is in no acute distress, patient has distal CSM intact in the right lower extremity, ambulates with a steady gait. Patient has a positive straight leg raise on the right, negative on the left. Back demonstrates no midline spinous process tenderness, crepitus, or step-off. Patient reports mild pain with palpation of the SI joint and superior buttock. Patient has no signs or symptoms of cauda equina syndrome, no indication for advanced imaging. Patient's presentation is consistent with sciatica versus piriformis syndrome. Patient will be treated with anti-inflammatories and lidocaine patch. The patient will be discharged with prescription for cyclobenzaprine, no cyclobenzaprine will be given in the ED as the patient is driving home. Patient has been instructed to follow up with PCP for additional management of his symptoms. Admission/Observation Consideration of admission/observation: Escalation of care including admission/observation considered External Record Review External record reviewed: Outpatient record and Prior outpatient labs Prescription Management I considered prescription management with: Pain Medication Discharge Plan Discharge Clinical Impression: Lumbar radiculopathy, right Patient Disposition: Home, Self-Care Instructions: Sciatica (ED), Lumbar Radiculopathy (ED), Piriformis Syndrome (ED) Additional Instructions: Justine por elegir el [facility] del [facility] para hester atenci?n hoy. Afortunadamente, dave signos vitales examinados hoy son tranquilizadores. En carola momento no hay indicaci?n para hester ingreso al hospital ni para continuar en observaci?n en el servicio de urgencias, por lo que puede regresar a casa. Hester dolor probablemente se deba a la inflamaci?n y compresi?n del nervio ci?kadeem en la ra?z nerviosa (radiculopat?a lumbar) o donde el nervio pasa por los gl?teos (s?ndrome piriforme). Debe kelsie dosis alternas de ibuprofeno de 600 mg y paracetamol de 1000 mg cada 4 horas maci los pr?ximos 2 a 3 d?as, y luego seg?n sea necesario para cualquier dolor adicional. Descanse la sabi afectada y puede aplicar hielo maci 20 minutos cada hora. [place] parte de hester plan de tratamiento, tambi?n se le will recetado un relajante muscular llamado ciclobenzaprina. [place] carola medicamento solo para el dolor intenso o espasmos que no se alivien con ibuprofeno y/o paracetamol. Los relajantes musculares pueden conllevar un alto riesgo de adicci?n y abuso. [place] carola medicamento solo seg?n las indicaciones y solo si es absolutamente necesario. Carola medicamento puede causar somnolencia; no debe conducir, operar maquinaria pesada ni ser el ?shellie cuidador de ni?os mientras lo magnus. Tambi?n le hemos aplicado un parche de lidoca?na; si nota que le proporciona un alivio significativo, puede comprar parches adicionales en cualquier farmacia local sin receta m?dica. Consulte con hester m?dico de cabecera para [place] reevaluaci?n, manejo adicional de dave s?ntomas y atenci?n preventiva continua. Si no tiene un m?dico de cabecera, llame al [facility] al [phone] para asignarle tejinder. Mientras espera, puede llamar a nuestra Cl?homar de Atenci?n sin [place] [facility] al [phone] para necesidades que no celestine de emergencia. Regrese al departamento de emergencias si presenta un cambio repentino o grave en dave s?ntomas, fiebre superior a 38 ?C (100.4 ?F) que no mejora con paracetamol o ibuprofeno, v?mitos recurrentes o cualquier otro s?ntoma o preocupaci?n nuevos o que empeoren. Thank you for choosing [facility]'s Emergency Department for your care today. Thankfully your examined vital signs today are reassuring. At this time there is no indication for admission to the hospital or continued ED observation, and it is safe to discharge you home. Your pain is likely due to inflammation and compression of your sciatica nerve at the nerve root (lumbar radiculopathy), or where the nerve passes through your buttocks (piriformis syndrome). You should take alternating (staggered) doses of ibuprofen 600mg and Tylenol 1000mg every 4 hours for the next 2-3 days, and then as needed for any additional pain. Please rest the injured area, and you may apply ice for 20 minutes every hour. As a part of your care plan, you have also been prescribed a muscle relaxer called cyclobenzaprine. Please take this medication only for severe pain or spasm that is not relieved by ibuprofen and/or Tylenol. Muscle relaxer medications can carry high risk of unintentional addiction and abuse. Take this medication only as directed and only if absolutely necessary. This medicine can make you drowsy, you are not allowed to drive, operate heavy machinery, or be the sole care provider for children while taking this medication. We have also treated you with a lidocaine patch, if you find this provides you significant relief additional patches can be purchased at any local pharmacy without a prescription. Please follow up with your primary care physician for re-evaluation, additional management of your symptoms, and continued preventative care. If you do not have a primary care physician, please call the [facility] at [phone] to establish a new primary care physician. While waiting to establish your new primary care physician, you can call our [facility] at [phone] for non-emergency needs. Please return to the emergency department if you develop a severe or sudden change in your symptoms, a fever over 100.4 that does not improve with Tylenol or Ibuprofen, recurrent vomiting, or any other new or worsening symptoms or concerns. Prescriptions: New cyclobenzaprine 10 mg tablet 10 mg PO TID PRN (Reason: muscle spasm) Qty: 14 0RF ibuprofen 600 mg tablet 600 mg PO Q8H PRN (Reason: fever or pain) Qty: 30 0RF acetaminophen 500 mg capsule 1,000 mg PO .q8 PRN (Reason: fever or pain) Qty: 30 0RF No Action bisacodyl 5 mg tablet,delayed release (DR/EC) 20 mg PO ONCE Qty: 4 0RF Rx Instructions: take four tablets once day of colonoscopy prep bisacodyl 5 mg tablet,delayed release (DR/EC) 10 mg PO BEDTIME Qty: 10 0RF Rx Instructions: Take two tablets at bedtime, starting five nights before colonoscopy polyethylene glycol 3350 [Miralax] 17 gram/dose powder 238 g PO ONCE Qty: 238 0RF Rx Instructions: per colonoscopy prep instructions Referrals: Sydney Zee MD [Primary Care Provider, Internal Medicine] Clinical Impression: Lumbar radiculopathy, right Print Language: Kinyarwanda
--- OUTSIDE RECORDS SUMMARY | 2025-09-27 04:39 | XMS_ITS | Clinical Summary ---
Author Organization [employer] Address [address] [place] [address] Care Team Providers Care Stem Maker Name Role Phone Unavailable Primary Care Provider [...] patient's age to complete this topic Insurance [facility]
[2025-09-27] MEDS: Lidocaine 4 % Patch ADH..PATCH 1 PATCH TRANSDERMA (04:50)
[2025-09-27 04:52] VITALS: BP 149/88; PULSE 48; RESP 16; O2SAT 95
[2025-09-27 04:55] VITALS: BP 149/88; PULSE 48; RESP 16; TEMP 36.4; O2SAT 95
== END 2025-09-27 04:55 | disposition home or self-care (01) ==
PROVIDERS: Emergency Provider Student in an Organized Health Care Education/Training Program; PCP Internal Medicine
DX: M54.16 Radiculopathy, lumbar region (principal)
CPT/HCPCS: 99283